=== PATIENT | female | born 1990 | race Caucasian/White ===

== ENCOUNTER 2016-09-07 22:32 | Emergency (ER) | payer BC ==
[2016-09-07] MEDS ORDERED: TETRACAINE 0.5% OPHTH SOLN 2 ML As Ordered ONE (23:00)
--- NOTE | 2016-09-08 04:30 | EDDOCDS ---
Physician Documentation [facility] Name: Yolanda Martínez Age: 25 yrs Sex: Female : 1990 Arrival Date: 09/07/2016 Time: 22:32 Bed 18 Private MD: NO PRIMARY PHYSICIAN, . Disposition: 09/08/16 04:01 Discharged to Home/Self Care. Impression: Amaurosis fugax - OS. - Condition is Stable. - Medication Reconciliation, Local Pharmacy Hours form. - Follow up: Jaret Flood; When: Follow Friday at Dr Flood's office.. - Problem is new. - Symptoms have improved. Historical: - Allergies: No known drug Allergies; - Home Meds: 1. none - PMHx: none; - PSHx: none; - Social history: Smoking status: Patient states was never smoker of tobacco. No barriers to communication noted, The patient speaks fluent Indonesian, Speaks appropriately for age. - Family history: Not pertinent. - : The pt / caregiver states he / she is not on anticoagulants. Home medication list is obtained from the patient. - Exposure Risk Screening:: None identified. 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 Vital Signs: 22:34 BP 133 / 71; Pulse 80; Resp 18; Temp 97.1(O); Pulse Ox 99% ; Weight 55.79 kg / 123 lbs; elp Height 5 ft. 6 in. (167.64 cm); Pain 4/10; 09/08 02:37 BP 132 / 69; Pulse 82; Resp 18; Temp 98.2; Pulse Ox 99% ; Pain 0/10; kas2 04:26 BP 125 / 69; Pulse 78; Resp 18; Temp 98.0(O); Pulse Ox 98% on R/A; Pain 0/10; kas2 09/07 22:34 Body Mass Index 19.85 (55.79 kg, 167.64 cm) elp Visual Acuity: 09/07 22:42 Left Eye Visual acuity 20/0, ; Right Eye Visual acuity 20/40, ; Without Lenses; PAtient jmalena reports only seeing carrillo outline with blurry vision in left eye MDM: 23:11 Financial registration complete. zo 23:25 [facility] Payment Agreement was scanned into MEDHOST and attached to record. zo 23:31 MRI Screening Tool - Place on chart, inform RN ordered. cs11 23:31 -MRI-Brain w/o foll by with Ordered. EDMS 23:39 MRI Screening Tool - Place on chart, inform RN complete. rs6 Signatures: Dispatcher MedHost EDMS Miguel A Mena Craig, DO DO cs11 Richard RahmanRN RN enzob Jessica Slagado, FELLED SEAM OPERATOR FELLED SEAM OPERATOR rs6 Shannon OwusuRN RN kas2 The chart was reviewed and I authenticate all verbal orders and agree with the evaluation and treatment provided.Attachments: 23:25 [facility] Payment Agreement zo MTDD
--- NOTE | 2016-09-08 04:30 | EDDOCDS ---
Nurse's Notes [facility] Name: Yolanda Martínez Age: 25 yrs Sex: Female : 1990 Arrival Date: 09/07/2016 Time: 22:32 Bed 18 Private MD: NO PRIMARY PHYSICIAN, . Diagnosis: Amaurosis fugax-OS Presentation: 09/07 22:35 Presenting complaint: Patient states: Patient reports one week ago had dull pain in eye jmb then went away. Tonight presents with blurring and dull pain. Mechanism of Injury: No Mechanism of Injury. Patient reports left eye has carrillo outline with blur. Adult Sepsis Screening: The patient does not have new or worsening altered mentation. Patient's respiratory rate is less than 22. Systolic blood pressure is greater than 100. Patient has a qSOFA score of 0- Negative Sepsis Screen. Suicide/Homicide risk assessment- the patient denies having any suicidal and/or homicidal ideations and does not present with any other emotional, behavioral or mental health complaints. Status: Patient is not a manager of creative services or dependent. Transition of care: patient was not received from another setting of care. 22:35 Acuity: TOMAS Level 3 [facility] 22:35 Method Of Arrival: Walkin/Carried/Asstd [facility] Triage Assessment: 22:37 General: Appears in no apparent distress, Behavior is appropriate for age, cooperative. [facility] Pain: Location: left eye Pain currently is 3 out of 10 on a pain scale. Pt Declines HIV testing. Neurological: Level of Consciousness is awake, alert, obeys commands, Oriented to person, place, time. EENT: No deficits noted. EENT: Reports blurred vision in outer aspect of conjuctiva of left eye, iris of left eye and inner aspect of conjunctiva of left eye. Respiratory: Airway is patent Respiratory effort is even, unlabored, Respiratory pattern is regular, symmetrical. Derm: Skin is pink, warm & dry. Musculoskeletal: Range of motion intact in all extremities. 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 none - PMHx: none; - PSHx: none; - Social history: Smoking status: Patient states was never smoker of tobacco. No barriers to communication noted, The patient speaks fluent Swiss, Speaks appropriately for age. - Family history: Not pertinent. - : The pt / caregiver states he / she is not on anticoagulants. Home medication list is obtained from the patient. - Exposure Risk Screening:: None identified. Screenin/01 00:30 Screening information is obtained from the patient. Fall risk: No risks identified. kas2 Assistance ADL's: requires no assistance with activities of daily living. Abuse/DV Screen: The patient / caregiver reports he/she is: not in a situation that causes fear, pain or injury. Nutritional screening: No deficits noted. Advance Directives: Currently, there is no health care proxy. There is no active DNR order. There is no living will. 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 home support is adequate. Assessment: 09/07 23:41 General: Appears in no apparent distress, Behavior is appropriate for age. ld5 Neurological: Level of Consciousness is awake, alert, obeys commands. EENT: Reports blurred vision to left eye. Respiratory: Airway is patent Respiratory effort is even, unlabored. 09/08 00:32 General: Patient sitting up in bed with family at beside. No apparent distress noted. kas2 Denies pain or discomfort at this time. Left eye remains oliveira and blurry. Will continue to monitor.. 01:43 General: Appears in no apparent distress, comfortable, well nourished, well groomed, kas2 Behavior is appropriate for age, cooperative. Neurological: Level of Consciousness is awake, alert, obeys commands, Oriented to person, place, time. Cardiovascular: Capillary refill < 3 seconds Heart tones present Rhythm is regular. Respiratory: Airway is patent Respiratory effort is even, unlabored, Respiratory pattern is regular, symmetrical, Breath sounds are clear bilaterally. Derm: Skin is intact, Skin is dry, Skin is pink, warm & dry. Skin temperature is warm. 02:35 General: Patient sitting in bed with family at bedside. No apparent distress. Denies kas2 pain or discomfort at this time. Call bailey within reach. Will conitinue to monitor.. 03:11 EENT: Sclera/Cornea. kas2 04:00 General: Patient laying in bed with family at bedside. Appears comfortable. No apparent kas2 distress noted. Denies pain or discomfort. Will continue to monitor.. 04:28 EENT: Eyes. kas2 Vital Signs: 09/07 22:34 BP 133 / 71; Pulse 80; Resp 18; Temp 97.1(O); Pulse Ox 99% ; Weight 55.79 kg; Height 5 elp ft. 6 in. (167.64 cm); Pain 4/10; 09/08 02:37 BP 132 / 69; Pulse 82; Resp 18; Temp 98.2; Pulse Ox 99% ; Pain 0/10; kas2 04:26 BP 125 / 69; Pulse 78; Resp 18; Temp 98.0(O); Pulse Ox 98% on R/A; Pain 0/10; kas2 09/07 22:34 Body Mass Index 19.85 (55.79 kg, 167.64 cm) elp Vitals: 09/07 22:34 Log In Time: September 07, 2016 at 22:31. elp Visual Acuity: 22:42 Left Eye Visual acuity 20/0, ; Right Eye Visual acuity 20/40, ; Without Lenses; PAtient [facility] reports only seeing carrillo outline with blurry vision in left eye ED Course: 22:33 Patient visited by Cande Marr PCA. elp 22:33 NO PRIMARY PHYSICIAN, . is Private Physician. elp 22:33 Patient moved to Waiting elp 22:35 Patient visited by Cande Marr PCA. elp 22:35 Patient moved to Pre RCE elp 22:37 Triage Initiated jmb 22:39 Patient moved to I10 / 23 jmb 22:52 Edgardo Loredo DO is Attending Physician. cs11 22:52 Patient visited by Edgardo Loredo DO. cs11 23:25 [facility] Payment Agreement was scanned into SpecifiedBy and attached to record. zo 23:41 Shannon Owusu RN is Primary Nurse. ld5 23:41 Patient moved to 18 ld5 23:42 Patient visited by Shannon Owusu RN. kas2 23:42 Patient visited by Jennifer Molina RN. ld5 09/08 00:31 Patient visited by Shannon Owusu RN. kas2 00:34 Patient visited by Shannon Owusu RN. kas2 01:07 Patient visited by Shannon Owusu RN. kas2 01:44 Patient visited by Shannon Owusu RN. kas2 02:35 Patient visited by Shannon Owusu RN. kas2 03:10 No procedures done that require assistance. kas2 03:11 Patient visited by Shannon Owusu RN. kas2 03:42 Patient visited by Shannon Owusu RN. kas2 04:00 Jaret Flood is Referral Physician. cs11 04:26 No IV's were initiated during this patient's visit. kas2 04:28 The patient / caregiver is instructed regarding the plan of care and ED course. kas2 04:29 Patient visited by Shannon Owusu RN. kas2 Order Results: There are currently no results for this order. Outcome: 04:01 Discharge ordered by Provider. cs11 04:28 Discharge Assessment: patient administered narcotics - no. The following High Risk kas2 Discharge criteria are identified: None. Discharged to home with friend. Condition: good Condition: stable Condition: improved. MRI Study completed. Property :Personal belongings accompany Pt. 04:29 Patient left the ED. [facility] Signatures: Miguel A Mena Laura,RN RN ld5 Edgardo Loredo DO DO cs11 Cande Marr, Richard Lopez RN RN jmb Smith, Kim, RN RN [facility] MTDD
--- NOTE | 2016-09-10 05:30 | EDDOCDS ---
Nurse's Notes [facility] Name: Yolanda Martínez Age: 25 yrs Sex: Female : 1990 Arrival Date: 09/07/2016 Time: 22:32 Bed 18 Private MD: NO PRIMARY PHYSICIAN, . Diagnosis: Amaurosis fugax-OS Presentation: 09/07 22:35 Presenting complaint: Patient states: Patient reports one week ago had dull pain in eye jmb then went away. Tonight presents with blurring and dull pain. Mechanism of Injury: No Mechanism of Injury. Patient reports left eye has carrlilo outline with blur. Adult Sepsis Screening: The patient does not have new or worsening altered mentation. Patient's respiratory rate is less than 22. Systolic blood pressure is greater than 100. Patient has a qSOFA score of 0- Negative Sepsis Screen. Suicide/Homicide risk assessment- the patient denies having any suicidal and/or homicidal ideations and does not present with any other emotional, behavioral or mental health complaints. 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 Transition of care: patient was not received from another setting of care. 22:35 Acuity: TOMAS Level 3 [facility] 22:35 Method Of Arrival: Walkin/Carried/Asstd [facility] Triage Assessment: 22:37 General: Appears in no apparent distress, Behavior is appropriate for age, cooperative. [facility] Pain: Location: left eye Pain currently is 3 out of 10 on a pain scale. Pt Declines HIV testing. Neurological: Level of Consciousness is awake, alert, obeys commands, Oriented to person, place, time. EENT: No deficits noted. EENT: Reports blurred vision in outer aspect of conjuctiva of left eye, iris of left eye and inner aspect of conjunctiva of left eye. Respiratory: Airway is patent Respiratory effort is even, unlabored, Respiratory pattern is regular, symmetrical. Derm: Skin is pink, warm & dry. Musculoskeletal: Range of motion intact in all extremities. 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 none - PMHx: none; - PSHx: none; - Social history: Smoking status: Patient states was never smoker of tobacco. No barriers to communication noted, The patient speaks fluent Chilean, Speaks appropriately for age. - Family history: Not pertinent. - : The pt / caregiver states he / she is not on anticoagulants. Home medication list is obtained from the patient. - Exposure Risk Screening:: None identified. Screenin/01 00:30 Screening information is obtained from the patient. Fall risk: No risks identified. kas2 Assistance ADL's: requires no assistance with activities of daily living. Abuse/DV Screen: The patient / caregiver reports he/she is: not in a situation that causes fear, pain or injury. Nutritional screening: No deficits noted. Advance Directives: Currently, there is no health care proxy. There is no active DNR order. There is no living will. There is no Power of Rn Mds. home support is adequate. Assessment: 09/07 23:41 General: Appears in no apparent distress, Behavior is appropriate for age. ld5 Neurological: Level of Consciousness is awake, alert, obeys commands. EENT: Reports blurred vision to left eye. Respiratory: Airway is patent Respiratory effort is even, unlabored. 09/08 00:32 General: Patient sitting up in bed with family at beside. No apparent distress noted. kas2 Denies pain or discomfort at this time. Left eye remains oliveira and blurry. Will continue to monitor.. 01:43 General: Appears in no apparent distress, comfortable, well nourished, well groomed, kas2 Behavior is appropriate for age, cooperative. Neurological: Level of Consciousness is awake, alert, obeys commands, Oriented to person, place, time. Cardiovascular: Capillary refill < 3 seconds Heart tones present Rhythm is regular. Respiratory: Airway is patent Respiratory effort is even, unlabored, Respiratory pattern is regular, symmetrical, Breath sounds are clear bilaterally. Derm: Skin is intact, Skin is dry, Skin is pink, warm & dry. Skin temperature is warm. 02:35 General: Patient sitting in bed with family at bedside. No apparent distress. Denies kas2 pain or discomfort at this time. Call bailey within reach. Will conitinue to monitor.. 03:11 EENT: Sclera/Cornea. kas2 04:00 General: Patient laying in bed with family at bedside. Appears comfortable. No apparent kas2 distress noted. Denies pain or discomfort. Will continue to monitor.. 04:28 EENT: Eyes. kas2 Vital Signs: 09/07 22:34 BP 133 / 71; Pulse 80; Resp 18; Temp 97.1(O); Pulse Ox 99% ; Weight 55.79 kg; Height 5 elp ft. 6 in. (167.64 cm); Pain 4/10; 09/08 02:37 BP 132 / 69; Pulse 82; Resp 18; Temp 98.2; Pulse Ox 99% ; Pain 0/10; kas2 04:26 BP 125 / 69; Pulse 78; Resp 18; Temp 98.0(O); Pulse Ox 98% on R/A; Pain 0/10; kas2 09/07 22:34 Body Mass Index 19.85 (55.79 kg, 167.64 cm) elp Vitals: 09/07 22:34 Log In Time: September 07, 2016 at 22:31. elp Visual Acuity: 22:42 Left Eye Visual acuity 20/0, ; Right Eye Visual acuity 20/40, ; Without Lenses; PAtient [facility] reports only seeing carrillo outline with blurry vision in left eye ED Course: 22:33 Patient visited by Cande Marr PCA. elp 22:33 NO PRIMARY PHYSICIAN, . is Private Physician. elp 22:33 Patient moved to Waiting elp 22:35 Patient visited by Cande Marr PCA. elp 22:35 Patient moved to Pre RCE elp 22:37 Triage Initiated jmb 22:39 Patient moved to I10 / 23 jmb 22:52 Edgardo Loredo DO is Attending Physician. cs11 22:52 Patient visited by Edgardo Loredo DO. cs11 23:25 [facility] Payment Agreement was scanned into [employer]Met[employer] and attached to record. zo 23:41 Shannon Owusu RN is Primary Nurse. ld5 23:41 Patient moved to 18 ld5 23:42 Patient visited by Shannon Owusu RN. kas2 23:42 Patient visited by Jennifer Molina RN. ld5 09/08 00:31 Patient visited by Shannon Owusu RN. kas2 00:34 Patient visited by Shannon Owusu RN. kas2 01:07 Patient visited by Shannon Owusu RN. kas2 01:44 Patient visited by Shannon Owusu RN. kas2 02:35 Patient visited by Shannon Owusu RN. kas2 03:10 No procedures done that require assistance. kas2 03:11 Patient visited by Shannon Owusu RN. [facility] 03:42 Patient visited by Shannon Owusu RN. [facility] 04:00 Jaret lFood is Referral Physician. cs11 04:26 No IV's were initiated during this patient's visit. [facility] 04:28 The patient / caregiver is instructed regarding the plan of care and ED course. [facility] 04:29 Patient visited by Shannon Owusu RN. [facility] 09:29 T-Sheet-- Draft Copy was scanned into CaseMetrix and attached to record. [facility] 09/09 09:53 Radiology Report was scanned into CaseMet[employer] and attached to record. Order Results: There are currently no results for this order. Outcome: 09/08 04:01 Discharge ordered by Provider. 11 04:28 Discharge Assessment: patient administered narcotics - no. The following High Risk [facility] Discharge criteria are identified: None. Discharged to home with friend. Condition: good Condition: stable Condition: improved. MRI Study completed. Property :Personal belongings accompany Pt. 04:29 Patient left the ED. [facility] Signatures: Alanis Dick, Reg Reg Miguel A Mata Laura,RN RN ld5 Edgardo Loredo, DO cs11 Cande Marr, MODELING INSTRUCTOR MODELING INSTRUCTOR Richard Perez RN RN Shannon Devine,ALEKSANDER RN [facility] Perla Colon [facility] Chart Complete MTDD
--- NOTE | 2016-09-10 05:30 | EDDOCDS ---
Physician Documentation [facility] Name: Yolanda Martínez Age: 25 yrs Sex: Female : 1990 Arrival Date: 09/07/2016 Time: 22:32 Bed 18 Private MD: NO PRIMARY PHYSICIAN, . Disposition: 09/08/16 04:01 Discharged to Home/Self Care. Impression: Amaurosis fugax - OS. - Condition is Stable. - Medication Reconciliation, Local Pharmacy Hours form. - Follow up: Jaret Flood; When: Follow Friday at Dr Flood's office.. - Problem is new. - Symptoms have improved. Historical: - Allergies: No known drug Allergies; - Home Meds: 1. none - PMHx: none; - PSHx: none; - Social history: Smoking status: Patient states was never smoker of tobacco. No barriers to communication noted, The patient speaks fluent Canadian, Speaks appropriately for age. - Family history: Not pertinent. - : The pt / caregiver states he / she is not on anticoagulants. Home medication list is obtained from the patient. - Exposure Risk Screening:: None identified. 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 6 in. (167.64 cm); Pain 4/10; 09/08 02:37 BP 132 / 69; Pulse 82; Resp 18; Temp 98.2; Pulse Ox 99% ; Pain 0/10; kas2 04:26 BP 125 / 69; Pulse 78; Resp 18; Temp 98.0(O); Pulse Ox 98% on R/A; Pain 0/10; kas2 09/07 22:34 Body Mass Index 19.85 (55.79 kg, 167.64 cm) elp Visual Acuity: 09/07 22:42 Left Eye Visual acuity 20/0, ; Right Eye Visual acuity 20/40, ; Without Lenses; PAtient jmalena reports only seeing carrillo outline with blurry vision in left eye MDM: 23:11 Financial registration complete. zo 23:25 [facility] Payment Agreement was scanned into MEDHOST and attached to record. zo 23:31 MRI Screening Tool - Place on chart, inform RN ordered. cs11 23:31 -MRI-Brain w/o foll by with Ordered. EDMS 23:39 MRI Screening Tool - Place on chart, inform RN complete. rs6 09/08 09:29 T-Sheet-- Draft Copy was scanned into MyStar[employer] and attached to record. se 09/09 09:53 Radiology Report was scanned into MEDHOST and attached to record. gb Signatures: Dispatcher MedHost EDMS Alanis Dick, Reg Reg gb Rajesh, Ashleyeann zo Edgardo Loredo, DO cs11 Richard Rahman,RN RN Jessica Kelly, STEEL SPAR OPERATOR STEEL SPAR OPERATOR rsShannon FarleyRN RN Perla Sam se The chart was reviewed and I authenticate all verbal orders and agree with the evaluation and treatment provided.Attachments: 09/07 23:25 [facility] Payment Agreement zo 09/08 09:29 T-Sheet-- Draft Copy [facility] Chart Complete MTDD
--- NOTE | 2016-09-10 05:30 | EDDOCDS ---
Physician Documentation [facility] Name: Yolanda Martínez Age: 25 yrs Sex: Female : 1990 Arrival Date: 09/07/2016 Time: 22:32 Bed 18 Private MD: NO PRIMARY PHYSICIAN, . Disposition: 09/08/16 04:01 Discharged to Home/Self Care. Impression: Amaurosis fugax - OS. - Condition is Stable. - Medication Reconciliation, Local Pharmacy Hours form. - Follow up: Jaret Flood; When: Follow Friday at Dr Flood's office.. - Problem is new. - Symptoms have improved. Historical: - Allergies: No known drug Allergies; - Home Meds: 1. none - PMHx: none; - PSHx: none; - Social history: Smoking status: Patient states was never smoker of tobacco. No barriers to communication noted, The patient speaks fluent Cymraes, Speaks appropriately for age. - Family history: Not pertinent. - : The pt / caregiver states he / she is not on anticoagulants. Home medication list is obtained from the patient. - Exposure Risk Screening:: None identified. 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 6 in. (167.64 cm); Pain 4/10; 09/08 02:37 BP 132 / 69; Pulse 82; Resp 18; Temp 98.2; Pulse Ox 99% ; Pain 0/10; kas2 04:26 BP 125 / 69; Pulse 78; Resp 18; Temp 98.0(O); Pulse Ox 98% on R/A; Pain 0/10; kas2 09/07 22:34 Body Mass Index 19.85 (55.79 kg, 167.64 cm) elp Visual Acuity: 09/07 22:42 Left Eye Visual acuity 20/0, ; Right Eye Visual acuity 20/40, ; Without Lenses; PAtient jmalena reports only seeing carrillo outline with blurry vision in left eye MDM: 23:11 Financial registration complete. zo 23:25 [facility] Payment Agreement was scanned into MEDHOST and attached to record. zo 23:31 MRI Screening Tool - Place on chart, inform RN ordered. cs11 23:31 -MRI-Brain w/o foll by with Ordered. EDMS 23:39 MRI Screening Tool - Place on chart, inform RN complete. rs6 09/08 09:29 T-Sheet-- Draft Copy was scanned into [employer] and attached to record. se 09/09 09:53 Radiology Report was scanned into MEDHOST and attached to record. gb Signatures: Dispatcher MedHost EDMS Alanis Dick, Reg Reg gb Rajesh, Ashleyeann zo Edgardo Loredo, DO cs11 Richard Rahman,RN RN Jessica Kelly, AUTO DRIVER AUTO DRIVER rsShannon FarleyRN RN Perla Sam se The chart was reviewed and I authenticate all verbal orders and agree with the evaluation and treatment provided.Attachments: 09/07 23:25 [facility] Payment Agreement zo 09/08 09:29 T-Sheet-- Draft Copy [facility] Chart Complete MTDD
--- NOTE | 2016-09-11 11:34 | CR ---
DATE OF CONSULTATION: 09/08/2016 CHIEF COMPLAINT: Left eye pain, blurred vision. HISTORY OF PRESENT ILLNESS: This is a 25-year-old white female who presented to the emergency room with her father, she reports one week of bilateral vision loss and eye pain. Over the past few days, the right eye pain resolved gradually and the vision improved and is now stated to be "normal". The patient woke up 09/07/2016 with worsening vision in the left eye and some mild eye pain with movement. She was seen and examined in the emergency room. An MRI was performed and was negative. PAST MEDICAL HISTORY: Denies. PAST SURGICAL HISTORY: Denies. PAST FAMILY HISTORY: Possibly glaucoma and has a grandmother with macular degeneration. REVIEW OF SYSTEMS: Left eye pain and blurred vision. All other negative, no upper or lower extremity weakness, no headache, no dysuria or incontinence. PAST OCULAR HISTORY: No prior ocular surgery or use of eye drops. ALLERGIES: No known drug allergies. MEDICATIONS: See chart. - denies oral contraception EXAM: When corrected visual acuity 20/40 right eye, left eye blurred vision at approximately 3 feet. Limited visual acuity examination in emergency room as no formal testing was available. Intraocular pressure (IOP) by palpation was normal both eyes. Pupils in the right eye were 6 mm and reactive to 3 mm with no afferent pupillary defect (APD). Left eye 6 mm to 3 mm reactive with no APD. Color plate testing was performed, it was full 16 out of 16 in the right eye. In the left eye, 0 out of 16, patient also missed test plate. Extraocular muscles were full OU. Slit lamp exam lids, lashes and adnexa - No ptosis, lid lag or retraction in both eyes. No evidence of ecchymosis. Conjunctiva and sclera was white and quiet both eyes. Cornea was clear both eyes. The anterior chamber was deep and quiet both eyes. Lens was clear both eyes. A 90 diopter undilated fundus exam was performed. Cup to disc ratio in the right eye was 0.45, Cup to disc ratio in the left eye was 0.4, sharp, pink and flat both eyes with no edema, or optic nerve hemorrhage. Macula is flat both eyes. Periphery: (limited as pupils were not dilated) No holes, no tears, no retinal detachment OU. Vessels were normal in caliber and normal color both eyes with no AV nicking or hypertensive changes. ASSESSMENT AND PLAN: 1. Blurred vision. 2. Eye pain. Followup in the office in 2 days, Friday morning for formal visual field 30-2 OCT retina and dilated exam with manifest refraction. To rule out evidence of optic nerve pathology or nonorganic vision loss. Patient was given phone number and office address to followup Friday or should return to the ER if patient notices any changes or worsening of the vision. All questions and findings were explained to the patient and father. JACKLNY
--- NOTE | 2016-09-11 11:46 | REPUSA ---
TECHNIQUE: MRI of the brain was performed prior to and following administration of intravenous contra st material. T1 spine echo, T2 fast spin echo and FLAIR sequences were obtained in sagittal, axial an d coronal planes. FINDINGS: The sella and parasellar regions are unremarkable in appearance. The corpus callosum and cerebellar t onsils are of normal configuration and position. There are no intra or extra-axial collections. There is no mass effect or midline shift. There is no evidence of hematoma formation. There is no hydrocep halus. The brain stem shows no mass effects, infarcts or hemorrhage. There are no cerebellopontine tumors. T he acoustic nerves are symmetrical. No cerebellar intra-axial pathology delineated. The fourth ventri dionne and aqueduct are normal. No abnormalities of the optic nerves are identified. There is no evidenc e of atrophic or degenerative changes. No dural or subdural masses or collections are detected. The visualized arterial structures demonstrate normal appearing flow voids. The VII and VIII nerve bu ndles are visualized and are unremarkable in appearance. There are no suspicious signal abnormalities within the infra or supratentorial space. Post gadolinium sequences demonstrate no evidence of abnormal enhancement. Mild chronic ethmoid and maxillary sinusitis. IMPRESSION: Sinusitis. Otherwise normal MRI of the brain. Thank you for your kind referral of this patient.
== END 2016-09-08 04:29 | disposition home or self-care (01) ==
LOC: M ED 22:32
DX: G45.3 Amaurosis fugax (principal)
CPT/HCPCS: 70553; 99283; A9576

== ENCOUNTER 2016-09-16 14:49 | Outpatient (CLI) | payer BC ==
[~2016-09-16] VITALS: Ht 167.6 cm; Wt 56.2 kg
[~2016-09-16 14:49] MED LIST: methylPREDNISolone 1,000 MG, VIAL MATE ADAPTER 1 EACH in D5W 250 ML IV ONE
[2016-09-16 16:12] LABS: BASO % 0.5 % (0.0-1.0); EOS # 0.1 K/mm3 (0.0-0.50); LARGE UNSTAINED CELL # 0.1 K/mm3 (0.0-0.4); LARGE UNSTAINED CELL % 1.7 % (0.0-4.0); LYMPH # 1.5 K/mm3 (1.5-6.5); MEAN CORPUSCULAR HEMOGLOBIN 29.3 pg (27.0-33.0); MEAN CORPUSCULAR HGB CONC 34.2 g/dl (32.0-36.5); MEAN CORPUSCULAR VOLUME 85.7 fl (80.0-96.0); MONO # 0.4 K/mm3 (0.0-0.8); MONO % 5.9 % (0.0-5.0); NEUTROPHILS # 4.6 K/mm3 (1.8-7.7); PLATELET COUNT, AUTOMATED 217 k/mm3 (150-450); RED CELL DISTRIBUTION WIDTH 12.8 % (11.5-14.5); WHITE BLOOD COUNT 6.6 K/mm3 (4.0-10.0)
[2016-09-16 16:38] LABS: ALBUMIN 3.7 GM/DL (3.2-5.2); ALBUMIN/GLOBULIN RATIO 1.16 (1.00-1.93); ALKALINE PHOSPHATASE 49 U/L (45-117); ALT/SGPT 17 U/L (12-78); ANION GAP 8 MEQ/L (8-16); AST/SGOT 9 U/L (15-37); BILIRUBIN,TOTAL 0.5 MG/DL (0.2-1.0); BLOOD UREA NITROGEN 11 MG/DL (7-18); CALCIUM LEVEL 8.3 MG/DL (8.5-10.1); CARBON DIOXIDE LEVEL 26 MEQ/L (21-32); CHLORIDE LEVEL 106 MEQ/L (98-107); CREATININE FOR GFR 0.74 MG/DL (0.55-1.02); GLOMERULAR FILTRATION RATE > 60.0 (>60); GLUCOSE, FASTING 90 MG/DL (70-105); POTASSIUM SERUM 3.9 MEQ/L (3.5-5.1); SODIUM LEVEL 140 MEQ/L (136-145); TOTAL PROTEIN 6.9 GM/DL (6.4-8.2)
[2016-09-16 18:29] LABS: ERYTHROCYTE SEDIMENTATION RATE 9 mm/hr (0-20)
== END 2016-09-16 16:55 | disposition home or self-care (01) ==
LOC: M INFU 14:49
PROVIDERS: ATTEND Psychiatry & Neurology Neurology
DX: H46.9 Unspecified optic neuritis (principal)
CPT/HCPCS: 36415; 80053; 82164; 83520; 84443; 85025; 85652; 86038; 86225; 86235; 86255; 86256; 86431; 86617; 96365; J2930

== ENCOUNTER 2016-09-17 12:59 | Outpatient (CLI) | payer BC ==
[~2016-09-17] VITALS: Ht 167.6 cm; Wt 56.4 kg
== END 2016-09-17 14:30 | disposition home or self-care (01) ==
LOC: M INFU 12:59
PROVIDERS: ATTEND Psychiatry & Neurology Neurology
DX: H46.9 Unspecified optic neuritis (principal)
CPT/HCPCS: 96365; J2930

== ENCOUNTER 2016-09-18 08:57 | Outpatient (CLI) | payer BC ==
[~2016-09-18] VITALS: Ht 167.6 cm; Wt 56.4 kg
[2016-09-18] MEDS ORDERED: methylPREDNISolone 1,000 MG, VIAL MATE ADAPTER 1 EACH in D5W 250 ML IV ONE (09:15)
== END 2016-09-18 10:30 | disposition home or self-care (01) ==
LOC: M INFU 08:57
PROVIDERS: ATTEND Psychiatry & Neurology Neurology
DX: H46.9 Unspecified optic neuritis (principal)
CPT/HCPCS: 96365; J2930

== ENCOUNTER 2016-09-19 09:28 | Outpatient (CLI) | payer BC ==
[~2016-09-19] VITALS: Ht 167.6 cm; Wt 56.4 kg
[2016-09-19] MEDS ORDERED: methylPREDNISolone 1,000 MG, VIAL MATE ADAPTER 1 EACH in D5W 250 ML IV ONE (09:45)
== END 2016-09-19 10:45 | disposition home or self-care (01) ==
LOC: M INFU 09:28
PROVIDERS: ATTEND Psychiatry & Neurology Neurology
DX: H46.9 Unspecified optic neuritis (principal)
CPT/HCPCS: 96365; 96366; J2930

== ENCOUNTER 2016-09-20 13:34 | Outpatient (CLI) | payer BC ==
[~2016-09-20] VITALS: Ht 167.6 cm; Wt 56.4 kg
[2016-09-20] MEDS ORDERED: methylPREDNISolone 1,000 MG, VIAL MATE ADAPTER 1 EACH in D5W 250 ML IV ONE (14:00)
== END 2016-09-20 15:00 | disposition home or self-care (01) ==
LOC: M INFU 13:34
PROVIDERS: ATTEND Psychiatry & Neurology Neurology
DX: H46.9 Unspecified optic neuritis (principal)
CPT/HCPCS: 96365; J2930

== ENCOUNTER → 2016-12-26 | Outpatient (CLI) | payer BC | LOC: M LAB 10:47 | PROVIDERS: ATTEND Psychiatry & Neurology Neurology | DX: G36.0 Neuromyelitis optica [Devic] (principal) ==

== ENCOUNTER 2017-09-15 11:51 | Emergency (ER) | payer BC ==
[2017-09-15 13:05] LABS: APPEARANCE, URINE CLEAR (CLEAR); BACTERIA, URINE AUTO 1+ (NEGATIVE); BILIRUBIN, URINE AUTO NEGATIVE (NEGATIVE); BLOOD, URINE BLOOD NEGATIVE (NEGATIVE); COLOR, URINE YELLOW (YELLOW); GLUCOSE, URINE (UA) AUTO NEGATIVE (NEGATIVE); KETONE, URINE AUTO NEGATIVE (NEGATIVE); LEUKOCYTE ESTERASE, URINE AUTO 2+ (NEGATIVE); NITRITE, URINE AUTO NEGATIVE (NEGATIVE); PROTEIN, URINE AUTO NEGATIVE (NEGATIVE); RBC, URINE AUTO 1 /HPF (0-3); SPECIFIC GRAVITY URINE AUTO 1.006 (1.002-1.035); SQUAMOUS EPITHELIAL CELL UR AU 1 /HPF (0-6); UROBILINOGEN, URINE AUTO 0.2 mg/dL (0.0-2.0); WBC, URINE AUTO 2 /HPF (0-3)
== END 2017-09-15 13:33 | disposition home or self-care (01) ==
LOC: M ED 11:51
DX: N39.0 Urinary tract infection, site not specified (principal)
CPT/HCPCS: 71101

== ENCOUNTER 2017-09-25 15:29 | Outpatient (CLI) | payer BC ==
[~2017-09-25 15:29] MED LIST changes: +BUPIVACAINE HCL 0.25% 30 ML VIAL As Ordered; +GLYCOPYRROLATE INJ 0.2 MG/ML 2 ML VIAL As Ordered; +LIDOCAINE 2% INJ 100 MG/5 ML SDV (FOR ANES.) As Ordered; +MIDAZOLAM INJ 2 MG/2 ML VIAL (J2250) As Ordered; +NEOSTIGMINE 10 MG/10 ML VIAL (J2710) As Ordered; +ONDANSETRON 4MG/2ML VIAL (J2405) As Ordered; +PROPOFOL 200 MG/20 ML VIAL As Ordered; +ROCURONIUM BROMIDE 50 MG/5 ML VIAL As Ordered; +fentaNYL 100 MCG/2 ML INJECTION (J3010) As Ordered; -methylPREDNISolone 1,000 MG, VIAL MATE ADAPTER 1 EACH in D5W 250 ML IV ONE
[2017-09-25] MEDS: methylPREDNISolone 1,000 MG, VIAL MATE ADAPTER 1 EACH in D5W 250 ML IV (15:46)
== END 2017-09-25 17:00 | disposition home or self-care (01) ==
LOC: M INFU 15:29
DX: G36.0 Neuromyelitis optica [Devic] (principal); Z79.899 Other long term (current) drug therapy
CPT/HCPCS: 96365

== ENCOUNTER 2017-09-26 09:01 | Outpatient (CLI) | payer BC ==
[2017-09-26] MEDS: methylPREDNISolone 1,000 MG, VIAL MATE ADAPTER 1 EACH in D5W 250 ML IV (09:23)
== END 2017-09-26 10:35 | disposition home or self-care (01) ==
LOC: M INFU 09:01
DX: G36.0 Neuromyelitis optica [Devic] (principal); Z79.899 Other long term (current) drug therapy
CPT/HCPCS: 96365

== ENCOUNTER 2017-09-27 10:32 | Outpatient (CLI) | payer BC ==
[2017-09-27] MEDS: methylPREDNISolone 1,000 MG, VIAL MATE ADAPTER 1 EACH in D5W 250 ML IV (11:30)
== END 2017-09-27 12:35 | disposition home or self-care (01) ==
LOC: M INFU 10:32 → M PED 10:38 → M INFU 12:35
DX: G36.0 Neuromyelitis optica [Devic] (principal); Z79.899 Other long term (current) drug therapy
CPT/HCPCS: 96365

== ENCOUNTER 2017-11-09 13:31 | Emergency (ER) | payer OTHER, BC ==
[2017-11-09] MEDS: TETRACAINE 0.5% OPHTH SOLN 4ML OU (14:00)
== END 2017-11-09 15:17 | disposition home or self-care (01) ==
LOC: M ED 13:31
DX: T54.91XA Toxic effect of unspecified corrosive substance, accidental (unintentional), initial encounter (principal); Y92.9 Unspecified place or not applicable; Y93.89 Activity, other specified; Y99.0 Civilian activity done for income or pay; Z79.899 Other long term (current) drug therapy
CPT/HCPCS: 99283

== ENCOUNTER → 2017-11-21 | Outpatient (CLI) | payer BC ==
[2017-11-21 14:57] LABS: BASO # 0.1 10^3/uL (0.0-0.2); BASO % 0.5 % (0.0-1.0); EOS # 0.1 10^3/uL (0.0-0.50); EOS % 0.6 % (0.0-3.0); HEMATOCRIT 38.9 % (36.0-47.0); HEMOGLOBIN 12.9 g/dl (12.0-16.0); IMMATURE GRANULOCYTE % 0.5 % (0-3.0); LYMPH % 9.2 % (24.0-44.0); MEAN CORPUSCULAR HEMOGLOBIN 29.1 pg (27.0-33.0); MEAN CORPUSCULAR HGB CONC 33.2 g/dl (32.0-36.5); MEAN CORPUSCULAR VOLUME 87.6 fl (80.0-96.0); MONO # 0.4 10^3/uL (0.0-0.8); MONO % 3.9 % (0.0-5.0); NEUTROPHILS # 9.3 10^3/uL (1.8-7.7); NEUTROPHILS % 85.3 % (36.0-66.0); PLATELET COUNT, AUTOMATED 280 10^3/uL (150-450); RED BLOOD COUNT 4.44 10^6/uL (4.00-5.40); RED CELL DISTRIBUTION WIDTH 13.1 % (11.5-14.5); WHITE BLOOD COUNT 10.9 10^3/uL (4.0-10.0)
[2017-11-21 15:24] LABS: ALBUMIN 4.1 GM/DL (3.2-5.2); ALBUMIN/GLOBULIN RATIO 1.32 (1.00-1.93); ALKALINE PHOSPHATASE 57 U/L (45-117); ALT/SGPT 24 U/L (12-78); ANION GAP 7 MEQ/L (8-16); AST/SGOT 10 U/L (7-37); BILIRUBIN,TOTAL 0.4 MG/DL (0.2-1.0); BLOOD UREA NITROGEN 13 MG/DL (7-18); CALCIUM LEVEL 8.9 MG/DL (8.5-10.1); CARBON DIOXIDE LEVEL 28 MEQ/L (21-32); CHLORIDE LEVEL 107 MEQ/L (98-107); CREATININE FOR GFR 0.74 MG/DL (0.55-1.30); GLOMERULAR FILTRATION RATE > 60.0 (>60); GLUCOSE, FASTING 113 MG/DL (70-100); POTASSIUM SERUM 4.2 MEQ/L (3.5-5.1); SODIUM LEVEL 142 MEQ/L (136-145); THYROID STIMULATING HORMONE 0.315 uIU/ML (0.358-3.740); TOTAL PROTEIN 7.2 GM/DL (6.4-8.2)
[2017-11-21 15:33] LABS: HEPATITIS B SURFACE ANTIGEN NEGATIVE (NEGATIVE)
[2017-11-27 00:06] LABS: HEPATITIS A IgG TOTAL Positive (Negative)
== END ==
LOC: M LAB 14:26
DX: Z79.899 Other long term (current) drug therapy (principal)
CPT/HCPCS: 84443

== ENCOUNTER → 2018-01-09 | Outpatient (CLI) | payer BC ==
[2018-01-09 15:40] LABS: CPK CREATINE PHOSPHOKINASE 42 U/L (26-192)
[2018-01-09 15:40] LABS: FREE T4 0.83 NG/DL (0.76-1.46); THYROID STIMULATING HORMONE 0.223 uIU/ML (0.358-3.740)
== END ==
LOC: M LAB 14:43
DX: M79.1 Myalgia (principal)
CPT/HCPCS: 82550

== ENCOUNTER → 2018-02-09 | Outpatient (REF) | payer BC | LOC: M SFHCADAM 02-10 09:55 | DX: Z01.419 Encounter for gynecological examination (general) (routine) without abnormal findings (principal) | CPT/HCPCS: G0123 ==

== ENCOUNTER → 2018-05-14 | Outpatient (REF) | payer BC | LOC: M SFHCLERA 10:38 | DX: D22.62 Melanocytic nevi of left upper limb, including shoulder (principal) | CPT/HCPCS: 88305 ==

== ENCOUNTER → 2018-05-15 | Outpatient (REF) | payer BC ==
[2018-05-15 20:05] LABS: APPEARANCE, URINE HAZY (CLEAR); BACTERIA, URINE AUTO 1+ (NEGATIVE); BILIRUBIN, URINE AUTO NEGATIVE (NEGATIVE); BLOOD, URINE BLOOD NEGATIVE (NEGATIVE); COLOR, URINE YELLOW (YELLOW); GLUCOSE, URINE (UA) AUTO NEGATIVE (NEGATIVE); KETONE, URINE AUTO NEGATIVE (NEGATIVE); LEUKOCYTE ESTERASE, URINE AUTO 1+ (NEGATIVE); NITRITE, URINE AUTO NEGATIVE (NEGATIVE); PROTEIN, URINE AUTO NEGATIVE (NEGATIVE); RBC, URINE AUTO 0 /HPF (0-3); SPECIFIC GRAVITY URINE AUTO 1.008 (1.002-1.035); SQUAMOUS EPITHELIAL CELL UR AU 0 /HPF (0-6); UROBILINOGEN, URINE AUTO 0.2 mg/dL (0.0-2.0); WBC, URINE AUTO 14 /HPF (0-3)
== END ==
LOC: M LAB REF 19:18
DX: N39.0 Urinary tract infection, site not specified (principal)
CPT/HCPCS: 81001

== ENCOUNTER 2018-06-22 15:29 | Outpatient (CLI) | payer BC ==
[2018-06-22] MEDS: methylPREDNISolone 1,000 MG, VIAL MATE ADAPTER 1 EACH in D5W 250 ML IV (16:26)
== END 2018-06-22 17:40 | disposition home or self-care (01) ==
LOC: M INFU 15:29
DX: G36.0 Neuromyelitis optica [Devic] (principal)
CPT/HCPCS: J2930

== ENCOUNTER → 2018-06-22 | Outpatient (CLI) | payer BC ==
[2018-06-22 18:32] LABS: TOTAL 25(OH) VITAMIN D 18.9 NG/ML (30.0-100.0)
== END ==
LOC: M LAB 15:27
DX: G36.0 Neuromyelitis optica [Devic] (principal)
CPT/HCPCS: 82306

== ENCOUNTER 2018-06-23 15:26 | Outpatient (CLI) | payer BC ==
[2018-06-23] MEDS: methylPREDNISolone 1,000 MG, VIAL MATE ADAPTER 1 EACH in D5W 250 ML IV (15:34)
== END 2018-06-23 16:50 | disposition home or self-care (01) ==
LOC: M INFU 15:26
DX: G36.0 Neuromyelitis optica [Devic] (principal)
CPT/HCPCS: J2930

== ENCOUNTER 2018-06-24 14:26 | Outpatient (CLI) | payer BC ==
[2018-06-24] MEDS: methylPREDNISolone 1,000 MG, VIAL MATE ADAPTER 1 EACH in D5W 250 ML IV (14:43)
== END 2018-06-24 15:50 | disposition home or self-care (01) ==
LOC: M INFU 14:26
DX: G35 Multiple sclerosis (principal); Z79.899 Other long term (current) drug therapy
CPT/HCPCS: J2930

== ENCOUNTER → 2018-08-04 | Outpatient (CLI) | payer BC ==
[2018-08-04 14:46] LABS: BASO # 0.1 10^3/uL (0.0-0.2); BASO % 0.7 % (0.0-1.0); EOS # 0.1 10^3/uL (0.0-0.50); EOS % 1.5 % (0.0-3.0); HEMATOCRIT 38.9 % (36.0-47.0); IMMATURE GRANULOCYTE % 0.3 % (0-3.0); LYMPH # 1.6 10^3/uL (1.5-6.5); LYMPH % 21.8 % (24.0-44.0); MEAN CORPUSCULAR HEMOGLOBIN 29.1 pg (27.0-33.0); MEAN CORPUSCULAR HGB CONC 33.4 g/dl (32.0-36.5); MEAN CORPUSCULAR VOLUME 87.2 fl (80.0-96.0); MONO # 0.7 10^3/uL (0.0-0.8); MONO % 9.6 % (0.0-5.0); NEUTROPHILS # 4.9 10^3/uL (1.8-7.7); NEUTROPHILS % 66.1 % (36.0-66.0); PLATELET COUNT, AUTOMATED 255 10^3/uL (150-450); RED BLOOD COUNT 4.46 10^6/uL (4.00-5.40); RED CELL DISTRIBUTION WIDTH 13.1 % (11.5-14.5); WHITE BLOOD COUNT 7.5 10^3/uL (4.0-10.0)
[2018-08-04 15:24] LABS: ALBUMIN 3.8 GM/DL (3.2-5.2); ALBUMIN/GLOBULIN RATIO 1.15 (1.00-1.93); ALKALINE PHOSPHATASE 57 U/L (45-117); ALT/SGPT 24 U/L (12-78); ANION GAP 6 MEQ/L (8-16); AST/SGOT 12 U/L (7-37); BILIRUBIN,TOTAL 0.4 MG/DL (0.2-1.0); BLOOD UREA NITROGEN 13 MG/DL (7-18); CALCIUM LEVEL 8.5 MG/DL (8.5-10.1); CARBON DIOXIDE LEVEL 26 MEQ/L (21-32); CHLORIDE LEVEL 107 MEQ/L (98-107); CREATININE FOR GFR 0.72 MG/DL (0.55-1.30); GLOMERULAR FILTRATION RATE > 60.0 (>60); GLUCOSE, FASTING 87 MG/DL (70-100); POTASSIUM SERUM 4.2 MEQ/L (3.5-5.1); PROLACTIN 8.2 NG/ML; SODIUM LEVEL 139 MEQ/L (136-145); THYROID STIMULATING HORMONE 0.811 uIU/ML (0.358-3.740); TOTAL PROTEIN 7.1 GM/DL (6.4-8.2)
== END ==
LOC: M LAB 14:18
DX: D35.2 Benign neoplasm of pituitary gland (principal)
CPT/HCPCS: 84146

== ENCOUNTER → 2018-08-18 | Outpatient (CLI) | payer BC | LOC: M WUC 12:48 | DX: S83.422A Sprain of lateral collateral ligament of left knee, initial encounter (principal); X58.XXXA Exposure to other specified factors, initial encounter; Y92.9 Unspecified place or not applicable | CPT/HCPCS: 73564 ==

== ENCOUNTER → 2018-09-21 | Outpatient (CLI) | payer BC ==
[~2018-09-21] MED LIST changes: +BACT800T5 PO; -BUPIVACAINE HCL 0.25% 30 ML VIAL As Ordered; +CELL500T PO; +GABA-843 PO; +GABA600T4 PO; -GLYCOPYRROLATE INJ 0.2 MG/ML 2 ML VIAL As Ordered; -LIDOCAINE 2% INJ 100 MG/5 ML SDV (FOR ANES.) As Ordered; +METH1VL IV; -MIDAZOLAM INJ 2 MG/2 ML VIAL (J2250) As Ordered; -NEOSTIGMINE 10 MG/10 ML VIAL (J2710) As Ordered; -ONDANSETRON 4MG/2ML VIAL (J2405) As Ordered; +PRED5TA PO; -PROPOFOL 200 MG/20 ML VIAL As Ordered; -ROCURONIUM BROMIDE 50 MG/5 ML VIAL As Ordered; -fentaNYL 100 MCG/2 ML INJECTION (J3010) As Ordered
[2018-09-21 16:31] LABS: PROLACTIN 10.9 NG/ML; THYROID STIMULATING HORMONE 0.607 uIU/ML (0.358-3.740)
== END ==
LOC: M LAB 15:21
PROVIDERS: ATTEND Psychiatry & Neurology Neurology
DX: G36.0 Neuromyelitis optica [Devic] (principal)

== ENCOUNTER → 2018-11-26 | Outpatient (REF) | payer BC | LOC: M SFHCLERA 09:55 | PROVIDERS: ATTEND Dermatology | DX: D22.5 Melanocytic nevi of trunk (principal) ==

== ENCOUNTER → 2018-12-21 | Outpatient (REF) | payer BC ==
[2018-12-21 19:17] LABS: BASO % 0.3 % (0.0-1.0); EOS # 0.1 10^3/uL (0.0-0.50); EOS % 1.4 % (0.0-3.0); HEMATOCRIT 39.5 % (36.0-47.0); HEMOGLOBIN 12.7 g/dl (12.0-15.5); LYMPH # 2.1 10^3/uL (1.5-6.5); LYMPH % 23.7 % (24.0-44.0); MEAN CORPUSCULAR HGB CONC 32.2 g/dl (32.0-36.5); MONO # 0.5 10^3/uL (0.0-0.8); MONO % 6.1 % (0.0-5.0); NEUTROPHILS % 68.2 % (36.0-66.0); PLATELET COUNT, AUTOMATED 264 10^3/uL (150-450); RED BLOOD COUNT 4.54 10^6/uL (4.00-5.40); WHITE BLOOD COUNT 8.8 10^3/uL (4.0-10.0)
[2018-12-21 19:23] LABS: ALBUMIN 4.2 GM/DL (3.2-5.2); ALT/SGPT 17 U/L (12-78); BILIRUBIN,TOTAL 0.3 MG/DL (0.2-1.0); BLOOD UREA NITROGEN 13 MG/DL (7-18); CALCIUM LEVEL 9.1 MG/DL (8.5-10.1); CARBON DIOXIDE LEVEL 28 MEQ/L (21-32); CHLORIDE LEVEL 106 MEQ/L (98-107); CREATININE FOR GFR 0.72 MG/DL (0.55-1.30); GLOMERULAR FILTRATION RATE > 60.0 (>60); GLUCOSE, FASTING 86 MG/DL (70-100); POTASSIUM SERUM 4.3 MEQ/L (3.5-5.1); SODIUM LEVEL 140 MEQ/L (136-145); TOTAL PROTEIN 7.3 GM/DL (6.4-8.2)
[2018-12-22 10:16] LABS: APPEARANCE, URINE HAZY (CLEAR); BACTERIA, URINE AUTO NEGATIVE (NEGATIVE); BILIRUBIN, URINE AUTO NEGATIVE (NEGATIVE); BLOOD, URINE BLOOD NEGATIVE (NEGATIVE); CALCIUM OXALATE CRYSTALS MODERATE; COLOR, URINE YELLOW (YELLOW); GLUCOSE, URINE (UA) AUTO NEGATIVE (NEGATIVE); KETONE, URINE AUTO NEGATIVE (NEGATIVE); LEUKOCYTE ESTERASE, URINE AUTO NEGATIVE (NEGATIVE); MUCUS, URINE SMALL (NEGATIVE); NITRITE, URINE AUTO NEGATIVE (NEGATIVE); PROTEIN, URINE AUTO NEGATIVE (NEGATIVE); RBC, URINE AUTO 2 /HPF (0-3); SPECIFIC GRAVITY URINE AUTO 1.028 (1.002-1.035); SQUAMOUS EPITHELIAL CELL UR AU 1 /HPF (0-6); UROBILINOGEN, URINE AUTO 0.2 mg/dL (0.0-2.0); WBC, URINE AUTO 0 /HPF (0-3)
== END ==
LOC: M LABNEURO 15:22
PROVIDERS: ATTEND Psychiatry & Neurology Neurology
DX: G36.0 Neuromyelitis optica [Devic] (principal)

== ENCOUNTER 2018-12-22 10:07 | Outpatient (CLI) | payer BC ==
[~2018-12-22] VITALS: Ht 165.1 cm; Wt 59.0 kg
[2018-12-22 10:25] VITALS: BP 149/93
[2018-12-22] MEDS ORDERED: methylPREDNISolone 1,000 MG, VIAL MATE ADAPTER 1 EACH in D5W 250 ML IV ONE (10:30)
[2018-12-22 11:43] VITALS: BP 134/82
== END 2018-12-22 11:45 | disposition home or self-care (01) ==
LOC: M INFU 10:07
PROVIDERS: ATTEND Psychiatry & Neurology Neurology
DX: G36.0 Neuromyelitis optica [Devic] (principal)
CPT/HCPCS: 81001; 87086; 96365; 96366; J2930

== ENCOUNTER 2018-12-23 14:41 | Outpatient (CLI) | payer BC ==
[~2018-12-23] VITALS: Ht 198.1 cm; Wt 59.0 kg
[2018-12-23] MEDS ORDERED: methylPREDNISolone 1,000 MG, VIAL MATE ADAPTER 1 EACH in D5W 250 ML IV ONE (15:00)
[2018-12-23 15:05] VITALS: BP 124/58
[2018-12-23 16:05] VITALS: BP 115/68
== END 2018-12-23 16:05 | disposition home or self-care (01) ==
LOC: M INFU 14:41
PROVIDERS: ATTEND Psychiatry & Neurology Neurology
DX: G36.0 Neuromyelitis optica [Devic] (principal)
CPT/HCPCS: 96365; J2930

== ENCOUNTER 2018-12-24 11:22 | Outpatient (CLI) | payer BC ==
[~2018-12-24] VITALS: Ht 167.6 cm; Wt 59.0 kg
[2018-12-24 11:25] VITALS: BP 123/64
[2018-12-24] MEDS ORDERED: methylPREDNISolone 1,000 MG, VIAL MATE ADAPTER 1 EACH in D5W 250 ML IV ONE (11:30)
[2018-12-24 12:30] VITALS: BP 124/87
== END 2018-12-24 12:45 | disposition home or self-care (01) ==
LOC: M INFU 11:22
PROVIDERS: ATTEND Psychiatry & Neurology Neurology
DX: G36.0 Neuromyelitis optica [Devic] (principal)
CPT/HCPCS: 96365; J2930

== ENCOUNTER → 2019-06-25 | Outpatient (CLI) | payer BC ==
[2019-06-25 13:56] LABS: BASO % 0.5 % (0.0-1.0); EOS # 0.1 10^3/uL (0.0-0.5); EOS % 1.3 % (0.0-3.0); HEMATOCRIT 41.2 % (36.0-47.0); HEMOGLOBIN 13.7 g/dl (12.0-15.5); LYMPH # 1.4 10^3/uL (1.5-5.0); LYMPH % 16.5 % (24.0-44.0); MEAN CORPUSCULAR HEMOGLOBIN 29.5 pg (27.0-33.0); MEAN CORPUSCULAR HGB CONC 33.3 g/dl (32.0-36.5); MEAN CORPUSCULAR VOLUME 88.6 fl (80.0-96.0); MONO # 0.7 10^3/uL (0.0-0.8); MONO % 7.9 % (0.0-5.0); NEUTROPHILS # 6.3 10^3/uL (1.5-8.5); NEUTROPHILS % 73.6 % (36.0-66.0); PLATELET COUNT, AUTOMATED 268 10^3/uL (150-450); RED BLOOD COUNT 4.65 10^6/uL (4.00-5.40); WHITE BLOOD COUNT 8.5 10^3/uL (4.0-10.0)
[2019-06-25 14:47] LABS: ALBUMIN 3.9 GM/DL (3.2-5.2); ALT/SGPT 20 U/L (12-78); BILIRUBIN,TOTAL 0.5 MG/DL (0.2-1.0); BLOOD UREA NITROGEN 8 MG/DL (7-18); CALCIUM LEVEL 8.9 MG/DL (8.5-10.1); CARBON DIOXIDE LEVEL 26 MEQ/L (21-32); CHLORIDE LEVEL 107 MEQ/L (98-107); CREATININE FOR GFR 0.71 MG/DL (0.55-1.30); FOLATE 16.4 NG/ML; GLOMERULAR FILTRATION RATE > 60.0 (>60); GLUCOSE, FASTING 103 MG/DL (70-100); POTASSIUM SERUM 4.4 MEQ/L (3.5-5.1); SODIUM LEVEL 139 MEQ/L (136-145); TOTAL 25(OH) VITAMIN D 15.8 NG/ML (30.0-100.0); TOTAL PROTEIN 6.9 GM/DL (6.4-8.2); VITAMIN B12 LEVEL 468 PG/ML
== END ==
LOC: M LAB 13:09
PROVIDERS: ATTEND Psychiatry & Neurology Neurology
DX: G36.0 Neuromyelitis optica [Devic] (principal); R53.83 Other fatigue

== ENCOUNTER 2020-07-04 14:28 | Outpatient (CLI) | payer BC, MEDICAID ==
[~2020-07-04] VITALS: Ht 167.6 cm; Wt 61.4 kg
[2020-07-04 15:00] VITALS: BP 123/85
[2020-07-04] MEDS ORDERED: methylPREDNISolone 1,000 MG, VIAL MATE ADAPTER 1 EACH in D5W 250 ML IV ONE (15:00)
[2020-07-04 15:58] VITALS: BP 138/86
== END 2020-07-04 16:10 | disposition home or self-care (01) ==
LOC: M INFU 14:28
PROVIDERS: ATTEND Psychiatry & Neurology Neurology
DX: G36.0 Neuromyelitis optica [Devic] (principal)
CPT/HCPCS: 96365; J2930

== ENCOUNTER 2020-07-05 14:22 | Outpatient (CLI) | payer MEDICAID ==
[~2020-07-05] VITALS: Ht 167.6 cm; Wt 61.4 kg
[2020-07-05 14:25] VITALS: BP 134/80
[2020-07-05] MEDS ORDERED: methylPREDNISolone 1,000 MG, VIAL MATE ADAPTER 1 EACH in D5W 250 ML IV ONE (14:30)
[2020-07-05 15:45] VITALS: BP 128/75
== END 2020-07-05 15:45 | disposition home or self-care (01) ==
LOC: M INFU 14:22
PROVIDERS: ATTEND Psychiatry & Neurology Neurology
DX: G36.0 Neuromyelitis optica [Devic] (principal)
CPT/HCPCS: 96365; J2930

== ENCOUNTER 2020-07-06 14:13 | Outpatient (CLI) | payer MEDICAID ==
[~2020-07-06] VITALS: Ht 167.6 cm; Wt 61.4 kg
[2020-07-06] MEDS ORDERED: methylPREDNISolone 1,000 MG, VIAL MATE ADAPTER 1 EACH in D5W 250 ML IV ONE (14:30)
[2020-07-06 14:41] VITALS: BP 136/86
[2020-07-06 15:33] VITALS: BP 122/71
== END 2020-07-06 15:35 | disposition home or self-care (01) ==
LOC: M INFU 14:13
PROVIDERS: ATTEND Psychiatry & Neurology Neurology
DX: G36.0 Neuromyelitis optica [Devic] (principal)
CPT/HCPCS: 96365; J2930

== ENCOUNTER 2020-07-07 14:17 | Outpatient (CLI) | payer MEDICAID ==
[~2020-07-07] VITALS: Ht 167.6 cm; Wt 61.3 kg
[2020-07-07 14:15] VITALS: BP 129/77
[2020-07-07] MEDS ORDERED: methylPREDNISolone 1,000 MG, VIAL MATE ADAPTER 1 EACH in D5W 250 ML IV ONE (14:30)
[2020-07-07 15:45] VITALS: BP 127/83
== END 2020-07-07 15:45 | disposition home or self-care (01) ==
LOC: M INFU 14:17
PROVIDERS: ATTEND Psychiatry & Neurology Neurology
DX: G36.0 Neuromyelitis optica [Devic] (principal)
CPT/HCPCS: 96365; J2930

== ENCOUNTER 2020-07-08 10:01 | Outpatient (CLI) | payer MEDICAID ==
[~2020-07-08] VITALS: Ht 167.6 cm; Wt 61.4 kg
[2020-07-08] MEDS ORDERED: methylPREDNISolone 1,000 MG, VIAL MATE ADAPTER 1 EACH in D5W 250 ML IV ONE (10:45)
== END 2020-07-08 13:00 | disposition home or self-care (01) ==
LOC: M INFU 10:01 → M OPCLI5PR 10:01 → M MS5PR 10:04 → M OPCLI5PR 13:00
PROVIDERS: ATTEND Psychiatry & Neurology Neurology
DX: G36.0 Neuromyelitis optica [Devic] (principal)
CPT/HCPCS: 96365; J2930

== ENCOUNTER → 2020-11-21 | Outpatient (CLI) | payer OTHER ==
[~2020-11-21] MED LIST changes: +GABA-282 PO; -GABA-843 PO
[2020-11-21 13:05] LABS: BASO # 0.1 10^3/uL (0.0-0.2); BASO % 0.8 % (0.0-1.0); EOS # 0.1 10^3/uL (0.0-0.5); EOS % 1.1 % (0.0-3.0); HEMATOCRIT 39.4 % (36.0-47.0); HEMOGLOBIN 12.9 g/dl (12.0-15.5); LYMPH # 1.2 10^3/uL (1.5-5.0); LYMPH % 19.6 % (24.0-44.0); MEAN CORPUSCULAR HEMOGLOBIN 28.2 pg (27.0-33.0); MEAN CORPUSCULAR HGB CONC 32.7 g/dl (32.0-36.5); MONO # 0.4 10^3/uL (0.0-0.8); NEUTROPHILS # 4.5 10^3/uL (1.5-8.5); NEUTROPHILS % 71.3 % (36.0-66.0); PLATELET COUNT, AUTOMATED 281 10^3/uL (150-450); RED BLOOD COUNT 4.58 10^6/uL (4.00-5.40); WHITE BLOOD COUNT 6.3 10^3/uL (4.0-10.0)
[2020-11-21 14:38] LABS: ALT/SGPT 16 U/L (12-78); BILIRUBIN,TOTAL 0.5 MG/DL (0.2-1.0); BLOOD UREA NITROGEN 11 MG/DL (7-18); CALCIUM LEVEL 9.2 MG/DL (8.5-10.1); CARBON DIOXIDE LEVEL 29 MEQ/L (21-32); CHLORIDE LEVEL 106 MEQ/L (98-107); CREATININE FOR GFR 0.84 MG/DL (0.55-1.30); FREE T4 0.99 NG/DL (0.76-1.46); GLOMERULAR FILTRATION RATE > 60.0 (>60); GLUCOSE, FASTING 121 MG/DL (70-100); POTASSIUM SERUM 3.8 MEQ/L (3.5-5.1); SODIUM LEVEL 139 MEQ/L (136-145); THYROID STIMULATING HORMONE 0.594 uIU/ML (0.358-3.740); TOTAL PROTEIN 7.2 GM/DL (6.4-8.2)
== END ==
LOC: M LAB 12:15
PROVIDERS: ATTEND Family Medicine
DX: F32.9 Major depressive disorder, single episode, unspecified (principal)

== ENCOUNTER → 2020-12-26 | Outpatient (CLI) | payer OTHER ==
[2020-12-26 15:48] LABS: HEMATOCRIT 39.9 % (36.0-47.0); HEMOGLOBIN 12.8 g/dl (12.0-15.5); MEAN CORPUSCULAR HEMOGLOBIN 28.3 pg (27.0-33.0); MEAN CORPUSCULAR HGB CONC 32.1 g/dl (32.0-36.5); MEAN CORPUSCULAR VOLUME 88.1 fl (80.0-96.0); PLATELET COUNT, AUTOMATED 283 10^3/uL (150-450); RED BLOOD COUNT 4.53 10^6/uL (4.00-5.40); WHITE BLOOD COUNT 6.3 10^3/uL (4.0-10.0)
[2020-12-26 16:14] LABS: ALBUMIN 3.9 GM/DL (3.2-5.2); BILIRUBIN,DIRECT 0.1 MG/DL (0.0-0.2); BILIRUBIN,TOTAL 0.2 MG/DL (0.2-1.0); TOTAL PROTEIN 7.3 GM/DL (6.4-8.2)
[2020-12-27 10:00] LABS: H PYLORI QUALITATIVE IgG NEGATIVE (NEGATIVE)
[2020-12-29 04:07] LABS: IGASUB3 24.8 mg/dL (13.4-97.9); IgA SERUM (part of Subclasses) 213 mg/dL (87-352); TISSUE TRANSGLUTAMINASE IgA <2 U/mL (0-3)
== END ==
LOC: M LAB 15:07
PROVIDERS: ATTEND Internal Medicine Gastroenterology
DX: R11.2 Nausea with vomiting, unspecified (principal)

== ENCOUNTER → 2021-02-14 | Outpatient (REF) | payer OTHER | LOC: M SFHCADAM 13:14 | PROVIDERS: ATTEND Family Medicine | DX: Z12.4 Encounter for screening for malignant neoplasm of cervix (principal) ==

== ENCOUNTER 2021-04-17 14:42 | Emergency (ER) | payer OTHER ==
[~2021-04-17] VITALS: Ht 167.6 cm; Wt 58.0 kg
[2021-04-17] MEDS ORDERED: ALBUTEROL 90 MCG/ACT 8GM HFA INHALER INH ONE (17:10)
[2021-04-17] MEDS ORDERED: NS 1,000 ML IV ONE (17:10)
[2021-04-17] MEDS ORDERED: methylPREDNISolone 125MG 2ML VIAL IV ONE (17:10)
[2021-04-17 17:38] LABS: BASO % 0.4 % (0.0-1.0); EOS # 0.1 10^3/uL (0.0-0.5); EOS % 1.4 % (0.0-3.0); HEMATOCRIT 37.1 % (36.0-47.0); LYMPH # 1.7 10^3/uL (1.5-5.0); MEAN CORPUSCULAR HEMOGLOBIN 28.4 pg (27.0-33.0); MEAN CORPUSCULAR HGB CONC 32.3 g/dl (32.0-36.5); MEAN CORPUSCULAR VOLUME 87.9 fl (80.0-96.0); MONO # 0.6 10^3/uL (0.0-0.8); MONO % 5.8 % (2.0-8.0); NEUTROPHILS # 7.4 10^3/uL (1.5-8.5); NEUTROPHILS % 75.1 % (36.0-66.0); PLATELET COUNT, AUTOMATED 220 10^3/uL (150-450); RED BLOOD COUNT 4.22 10^6/uL (4.00-5.40); WHITE BLOOD COUNT 9.8 10^3/uL (4.0-10.0)
[2021-04-17 18:02] LABS: ALT/SGPT 21 U/L (12-78); CPK CREATINE PHOSPHOKINASE 30 U/L (26-192)
[2021-04-17 18:03] LABS: ALBUMIN 3.9 GM/DL (3.2-5.2); BILIRUBIN,DIRECT < 0.1 MG/DL (0.0-0.2); BILIRUBIN,TOTAL 0.2 MG/DL (0.2-1.0); CK-MB VALUE MASS < 1.0 NG/ML (<3.6); MB/CK RELATIVE INDEX 3.33 (< OR =4); TOTAL PROTEIN 6.8 GM/DL (6.4-8.2); TROPONIN I < 0.02 NG/ML (< 0.10)
--- NOTE | 2021-04-17 18:51 | REP ---
INDICATION: DYSPNEA/COUGH. COMPARISON: None. TECHNIQUE: PA and lateral FINDINGS: The superior mediastinal structures are midline. The cardiac silhouette is unremarkable in size, shape, and position. The diaphragmatic surfaces of the lungs are regular, and the costophrenic angles are clear. The pulmonary jordan are clear. The imaged osseous structures are intact. IMPRESSION: There is no acute cardiopulmonary disease. <Electronically signed by Wyatt Wayne > 04/17/21 [id number]
[2021-04-17] MEDS ORDERED: PRED10TA2 PO (19:40)
[2021-04-17] MEDS ORDERED: VENTAER INH (19:40)
[2021-04-17 20:21] VITALS: BP 125/77
--- NOTE | 2021-04-18 07:20 | ECGEPIP ---
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
[2021-04-18] MEDS ORDERED: NOXI1TAB PO (21:45)
[2021-04-18] MEDS ORDERED: EQL50TAB2 PO (21:45)
== END 2021-04-17 20:28 | disposition home or self-care (01) ==
LOC: M ED 14:42
DX: R06.02 Shortness of breath (principal); R07.89 Other chest pain; T50.995A Adverse effect of other drugs, medicaments and biological substances, initial encounter; Y92.89 Other specified places as the place of occurrence of the external cause; Z79.899 Other long term (current) drug therapy; F12.20 Cannabis dependence, uncomplicated
CPT/HCPCS: 71046; 80047; 80076; 82550; 82553; 83605; 84702; 85025; 93005; 94640; 96361; 96374; 99284; J2930

== ENCOUNTER 2021-04-18 21:24 | Emergency (ER) | payer OTHER ==
[~2021-04-18] VITALS: Ht 167.6 cm; Wt 56.9 kg
[~2021-04-18 21:24] MED LIST changes: +PRED10TA2 PO; +VENTAER INH
[2021-04-18] MEDS ORDERED: EQL50TAB2 PO (21:45)
[2021-04-18] MEDS ORDERED: NOXI1TAB PO (21:45)
[2021-04-18 23:00] VITALS: BP 121/73
== END 2021-04-18 23:06 | disposition home or self-care (01) ==
LOC: M ED 22:50
DX: R07.89 Other chest pain (principal); H46.9 Unspecified optic neuritis; Z79.52 Long term (current) use of systemic steroids; Z79.899 Other long term (current) drug therapy

== ENCOUNTER → 2021-06-14 | Outpatient (CLI) | payer BC ==
[~2021-06-14] MED LIST changes: +EQL50TAB2 PO; +NOXI1TAB PO
[2021-06-14 10:29] LABS: BASO # 0.1 10^3/uL (0.0-0.2); BASO % 0.9 % (0.0-1.0); EOS # 0.1 10^3/uL (0.0-0.5); EOS % 2.2 % (0.0-3.0); HEMATOCRIT 41.2 % (36.0-47.0); HEMOGLOBIN 13.4 g/dl (12.0-15.5); MEAN CORPUSCULAR HEMOGLOBIN 29.1 pg (27.0-33.0); MEAN CORPUSCULAR HGB CONC 32.5 g/dl (32.0-36.5); MEAN CORPUSCULAR VOLUME 89.4 fl (80.0-96.0); MONO # 0.6 10^3/uL (0.0-0.8); MONO % 11.3 % (2.0-8.0); NEUTROPHILS # 3.8 10^3/uL (1.5-8.5); NEUTROPHILS % 68.2 % (36.0-66.0); PLATELET COUNT, AUTOMATED 210 10^3/uL (150-450); RED BLOOD COUNT 4.61 10^6/uL (4.00-5.40); WHITE BLOOD COUNT 5.6 10^3/uL (4.0-10.0)
[2021-06-14 10:35] LABS: ALT/SGPT 20 U/L (12-78); BILIRUBIN,TOTAL 0.6 MG/DL (0.2-1.0); BLOOD UREA NITROGEN 11 MG/DL (7-18); CALCIUM LEVEL 9.1 MG/DL (8.5-10.1); CARBON DIOXIDE LEVEL 26 MEQ/L (21-32); CHLORIDE LEVEL 107 MEQ/L (98-107); CREATININE FOR GFR 0.61 MG/DL (0.55-1.30); GLOMERULAR FILTRATION RATE > 60.0 (>60); GLUCOSE, FASTING 82 MG/DL (70-100); POTASSIUM SERUM 4.3 MEQ/L (3.5-5.1); SODIUM LEVEL 140 MEQ/L (136-145); TOTAL PROTEIN 7.2 GM/DL (6.4-8.2)
== END ==
LOC: M LAB 08:12
PROVIDERS: ATTEND Nurse Practitioner
DX: G36.0 Neuromyelitis optica [Devic] (principal); Z79.899 Other long term (current) drug therapy

== ENCOUNTER → 2021-10-27 | Outpatient (CLI) | payer BC ==
[2021-10-27 10:49] LABS: ALBUMIN 3.6 GM/DL (3.2-5.2); ALT/SGPT 21 U/L (12-78); BILIRUBIN,TOTAL 0.6 MG/DL (0.2-1.0); BLOOD UREA NITROGEN 10 MG/DL (7-18); CALCIUM LEVEL 8.9 MG/DL (8.5-10.1); CARBON DIOXIDE LEVEL 26 MEQ/L (21-32); CHLORIDE LEVEL 109 MEQ/L (98-107); CREATININE FOR GFR 0.62 MG/DL (0.55-1.30); FREE T4 0.85 NG/DL (0.76-1.46); GLOMERULAR FILTRATION RATE > 60.0 (>60); GLUCOSE, FASTING 92 MG/DL (70-100); POTASSIUM SERUM 4.1 MEQ/L (3.5-5.1); SODIUM LEVEL 140 MEQ/L (136-145); THYROID STIMULATING HORMONE 0.654 uIU/ML (0.358-3.740); TOTAL PROTEIN 6.7 GM/DL (6.4-8.2)
== END ==
LOC: M LAB 09:27 → M PLALAB 09:27
PROVIDERS: ATTEND Family Medicine
DX: E05.90 Thyrotoxicosis, unspecified without thyrotoxic crisis or storm (principal); Z79.52 Long term (current) use of systemic steroids

== ENCOUNTER → 2021-12-12 | Outpatient (REF) | LOC: M EMP 12:46 | PROVIDERS: ATTEND Family Medicine | DX: Z11.52 Encounter for screening for COVID-19 (principal) ==

== ENCOUNTER → 2022-03-25 | Outpatient (CLI) | payer BC ==
[2022-03-25 09:51] LABS: THYROID STIMULATING HORMONE 1.05 uIU/ML (0.358-3.740)
[2022-03-25 12:10] LABS: PROLACTIN 17.9 NG/ML; TOTAL 25(OH) VITAMIN D 17.9 NG/ML (30.0-100.0)
== END ==
LOC: M LAB 08:39
PROVIDERS: ATTEND Psychiatry & Neurology Neurology
DX: G36.0 Neuromyelitis optica [Devic] (principal); D35.2 Benign neoplasm of pituitary gland

== ENCOUNTER → 2022-07-07 | Outpatient (REF) | LOC: M LABSMTC 11:02 | PROVIDERS: ATTEND Family Medicine | DX: Z11.52 Encounter for screening for COVID-19 (principal) ==

== ENCOUNTER 2022-08-10 16:50 | Emergency (ER) | payer BC ==
[~2022-08-10] VITALS: Ht 167.6 cm; Wt 62.6 kg
[2022-08-10] MEDS ORDERED: PRED1TABL PO (17:01)
[2022-08-10] MEDS ORDERED: NS 1,000 ML IV ONE (17:30)
[2022-08-10] MEDS ORDERED: ONDANSETRON 4MG 2ML VIAL IV ONE (17:30)
[2022-08-10] MEDS ORDERED: KETOROLAC 30 MG/ML 1ML VIAL IV ONE (17:30)
[2022-08-10 17:50] LABS: BASO % 0.5 % (0.0-1.0); EOS # 0.2 10^3/uL (0.0-0.5); EOS % 2.9 % (0.0-3.0); HEMATOCRIT 38.1 % (36.0-47.0); HEMOGLOBIN 12.8 g/dl (12.0-15.5); LYMPH # 1.7 10^3/uL (1.5-5.0); LYMPH % 20.5 % (24.0-44.0); MEAN CORPUSCULAR HEMOGLOBIN 29.4 pg (27.0-33.0); MEAN CORPUSCULAR HGB CONC 33.6 g/dl (32.0-36.5); MEAN CORPUSCULAR VOLUME 87.6 fl (80.0-96.0); MONO # 0.9 10^3/uL (0.0-0.8); MONO % 10.4 % (2.0-8.0); NEUTROPHILS # 5.4 10^3/uL (1.5-8.5); NEUTROPHILS % 65.5 % (36.0-66.0); PLATELET COUNT, AUTOMATED 246 10^3/uL (150-450); RED BLOOD COUNT 4.35 10^6/uL (4.00-5.40); WHITE BLOOD COUNT 8.3 10^3/uL (4.0-10.0)
[2022-08-10] MEDS ORDERED: ISOVUE-370 76% 100ML VIAL As Ordered ONE (18:07)
[2022-08-10 18:08] LABS: LIPASE 32 U/L (12-53)
[2022-08-10 18:10] LABS: ALBUMIN 4.2 G/DL (3.2-5.2); ALKALINE PHOSPHATASE 60 U/L (46-116); ALT/SGPT 16 U/L (7.0-40); AST/SGOT 24 U/L (<34); BILIRUBIN,DIRECT < 0.1 MG/DL (<0.4); BILIRUBIN,TOTAL 0.3 MG/DL (0.3-1.2); TOTAL PROTEIN 7.1 G/DL (5.7-8.2)
[2022-08-10 18:26] LABS: RSV AMPLIFICATION NEGATIVE (NEGATIVE)
[2022-08-10] MEDS ORDERED: MIRA3350 PO (19:10)
[2022-08-10] MEDS ORDERED: BACTRIM 160MG/800MG DS TAB PO ONE (19:10)
[2022-08-10] MEDS ORDERED: ONDA4TAB6 PO (19:10)
[2022-08-10] MEDS ORDERED: BACT800T5 PO (19:10)
[2022-08-10 19:16] VITALS: BP 117/59
== END 2022-08-10 19:25 | disposition home or self-care (01) ==
LOC: M ED 16:50
DX: N30.00 Acute cystitis without hematuria (principal); K59.00 Constipation, unspecified; R11.0 Nausea; R51.9 Headache, unspecified; H46.9 Unspecified optic neuritis; R93.2 Abnormal findings on diagnostic imaging of liver and biliary tract; N28.89 Other specified disorders of kidney and ureter; Z79.51 Long term (current) use of inhaled steroids; Z79.899 Other long term (current) drug therapy
CPT/HCPCS: 74177; 80047; 80076; 81000; 83690; 84702; 85025; 87086; 87631; 96361; 96374; 96375; 99284; J1885; J2405

== ENCOUNTER 2022-08-24 20:21 | Emergency (ER) | payer BC ==
[~2022-08-24] VITALS: Ht 167.6 cm; Wt 62.2 kg
[~2022-08-24 20:21] MED LIST changes: +MIRA3350 PO; +ONDA4TAB6 PO; +PRED1TABL PO
[2022-08-24 20:52] LABS: BASO # 0.1 10^3/uL (0.0-0.2); BASO % 0.7 % (0.0-1.0); EOS # 0.3 10^3/uL (0.0-0.5); EOS % 4.1 % (0.0-3.0); HEMATOCRIT 36.2 % (36.0-47.0); HEMOGLOBIN 12.1 g/dl (12.0-15.5); LYMPH % 27.4 % (24.0-44.0); MEAN CORPUSCULAR HEMOGLOBIN 29.4 pg (27.0-33.0); MEAN CORPUSCULAR HGB CONC 33.4 g/dl (32.0-36.5); MEAN CORPUSCULAR VOLUME 87.9 fl (80.0-96.0); MONO # 0.7 10^3/uL (0.0-0.8); MONO % 9.8 % (2.0-8.0); NEUTROPHILS # 4.1 10^3/uL (1.5-8.5); NEUTROPHILS % 57.7 % (36.0-66.0); PLATELET COUNT, AUTOMATED 307 10^3/uL (150-450); RED BLOOD COUNT 4.12 10^6/uL (4.00-5.40); WHITE BLOOD COUNT 7.1 10^3/uL (4.0-10.0)
[2022-08-24 21:13] LABS: CK-MB VALUE MASS < 1.0 NG/ML (<3.6)
[2022-08-24 21:15] LABS: BLOOD UREA NITROGEN 12 MG/DL (9-23); CALCIUM LEVEL 9.1 MG/DL (8.5-10.1); CARBON DIOXIDE LEVEL 26 MMOL/L (20-31); CHLORIDE LEVEL 106 MMOL/L (98-107); CPK CREATINE PHOSPHOKINASE 31 U/L (34-145); CREATININE FOR GFR 0.63 MG/DL (0.55-1.30); GLOMERULAR FILTRATION RATE > 60.0 (>60); GLUCOSE, FASTING 99 MG/DL (60-100); MB/CK RELATIVE INDEX 3.22 (< OR =4); POTASSIUM SERUM 4.4 MMOL/L (3.5-5.1); SODIUM LEVEL 140 MMOL/L (136-145)
[2022-08-24] MEDS ORDERED: KETOROLAC 60MG 2ML VIAL IM ONE (21:30)
[2022-08-24] MEDS ORDERED: ISOVUE-370 76% 100ML VIAL As Ordered ONE (21:53)
[2022-08-24] MEDS ORDERED: NS 1,000 ML IV ONE (21:55)
[2022-08-24] MEDS ORDERED: KETOROLAC 30 MG/ML 1ML VIAL IV ONE (21:55)
[2022-08-24 22:09] LABS: HCG, SERUM QUALITATIVE NEGATIVE (NEGATIVE)
[2022-08-24 23:05] VITALS: BP 117/68
== END 2022-08-24 23:00 | disposition home or self-care (01) ==
LOC: M ED 20:21
DX: M94.0 Chondrocostal junction syndrome [Tietze] (principal); R07.89 Other chest pain; G35 Multiple sclerosis; K59.00 Constipation, unspecified; Z79.899 Other long term (current) drug therapy
CPT/HCPCS: 71045; 71275; 80048; 82550; 82553; 84484; 84703; 85025; 93005; 93041; 94760; 96361; 96374; 99285; J1885

== ENCOUNTER → 2022-10-07 | Outpatient (CLI) | payer BC | LOC: M WHC 07:23 | PROVIDERS: ATTEND Family Medicine | DX: N94.89 Other specified conditions associated with female genital organs and menstrual cycle (principal); Z3A.01 Less than 8 weeks gestation of pregnancy ==

== ENCOUNTER → 2022-10-14 | Outpatient (CLI) | payer BC ==
[2022-10-14 09:31] LABS: BASO % 0.3 % (0.0-1.0); EOS # 0.2 10^3/uL (0.0-0.5); HEMATOCRIT 37.7 % (36.0-47.0); HEMOGLOBIN 12.7 g/dl (12.0-15.5); LYMPH # 1.4 10^3/uL (1.5-5.0); LYMPH % 14.9 % (24.0-44.0); MEAN CORPUSCULAR HEMOGLOBIN 29.8 pg (27.0-33.0); MEAN CORPUSCULAR HGB CONC 33.7 g/dl (32.0-36.5); MEAN CORPUSCULAR VOLUME 88.5 fl (80.0-96.0); MONO # 0.8 10^3/uL (0.0-0.8); MONO % 8.3 % (2.0-8.0); NEUTROPHILS # 6.7 10^3/uL (1.5-8.5); NEUTROPHILS % 74.2 % (36.0-66.0); PLATELET COUNT, AUTOMATED 254 10^3/uL (150-450); RED BLOOD COUNT 4.26 10^6/uL (4.00-5.40); WHITE BLOOD COUNT 9.1 10^3/uL (4.0-10.0)
[2022-10-14 10:06] LABS: FREE T4 1.04 NG/DL (0.89-1.76); THYROID STIMULATING HORMONE 0.415 uIU/ML (0.55-4.78)
[2022-10-14 10:09] LABS: ALBUMIN 3.7 G/DL (3.2-5.2); ALKALINE PHOSPHATASE 51 U/L (46-116); ALT/SGPT 12 U/L (7.0-40); AST/SGOT 16 U/L (<34); BILIRUBIN,TOTAL 0.6 MG/DL (0.3-1.2); BLOOD UREA NITROGEN 8 MG/DL (9-23); CALCIUM LEVEL 9.1 MG/DL (8.5-10.1); CARBON DIOXIDE LEVEL 23 MMOL/L (20-31); CHLORIDE LEVEL 106 MMOL/L (98-107); CREATININE FOR GFR 0.59 MG/DL (0.55-1.30); GLOMERULAR FILTRATION RATE > 60.0 (>60); GLUCOSE, FASTING 85 MG/DL (60-100); POTASSIUM SERUM 4.2 MMOL/L (3.5-5.1); SODIUM LEVEL 137 MMOL/L (136-145); TOTAL PROTEIN 6.3 G/DL (5.7-8.2)
== END ==
LOC: M LAB 08:30
PROVIDERS: ATTEND Family Medicine
DX: Z36.9 Encounter for antenatal screening, unspecified (principal)

== ENCOUNTER → 2022-11-04 | Outpatient (REF) | LOC: M LABSMTC 08:52 | PROVIDERS: ATTEND Family Medicine | DX: Z11.52 Encounter for screening for COVID-19 (principal) ==

== ENCOUNTER 2023-05-14 00:30 | Outpatient (CLI) | payer BC ==
[~2023-05-14] VITALS: Ht 167.6 cm; Wt 79.8 kg
[2023-05-14 00:42] VITALS: BP 129/81
[2023-05-14] MEDS ORDERED: PRED1TABL PO (00:51)
[2023-05-14] MEDS ORDERED: RA M500C PO (00:53)
[2023-05-14] MEDS ORDERED: IRON27TA2 PO (00:53)
[2023-05-14] MEDS ORDERED: TUMS500C PO (00:53)
[2023-05-14] MEDS ORDERED: ASCO250T20 PO (00:54)
[2023-05-14] MEDS ORDERED: HOME MED LIST COMPLETE! XX SCH (00:55)
== END 2023-05-14 01:54 | disposition home or self-care (01) ==
LOC: M LDO 00:30
PROVIDERS: ATTEND Specialist
DX: O26.853 Spotting complicating pregnancy, third trimester (principal); Z3A.38 38 weeks gestation of pregnancy
CPT/HCPCS: 59025; G0463

== ENCOUNTER → 2023-07-28 | Outpatient (CLI) | payer BC ==
[~2023-07-28] MED LIST changes: +ASCO250T20 PO; +IRON27TA2 PO; +RA M500C PO; +TUMS500C PO
[2023-07-28 14:17] LABS: BASO # 0.1 10^3/uL (0.0-0.2); BASO % 0.8 % (0.0-1.0); EOS # 0.2 10^3/uL (0.0-0.5); EOS % 3.3 % (0.0-3.0); HEMATOCRIT 43.5 % (36.0-47.0); HEMOGLOBIN 14.2 g/dl (12.0-15.5); LYMPH # 1.1 10^3/uL (1.5-5.0); LYMPH % 17.4 % (24.0-44.0); MEAN CORPUSCULAR HEMOGLOBIN 29.8 pg (27.0-33.0); MEAN CORPUSCULAR HGB CONC 32.6 g/dl (32.0-36.5); MEAN CORPUSCULAR VOLUME 91.2 fl (80.0-96.0); MONO # 0.5 10^3/uL (0.0-0.8); MONO % 7.9 % (2.0-8.0); NEUTROPHILS # 4.5 10^3/uL (1.5-8.5); NEUTROPHILS % 70.4 % (36.0-66.0); PLATELET COUNT, AUTOMATED 307 10^3/uL (150-450); RED BLOOD COUNT 4.77 10^6/uL (4.00-5.40); WHITE BLOOD COUNT 6.3 10^3/uL (4.0-10.0)
[2023-07-28 14:22] LABS: FREE T4 0.98 NG/DL (0.89-1.76)
[2023-07-28 14:23] LABS: THYROID STIMULATING HORMONE 0.81 uIU/ML (0.55-4.78)
== END ==
LOC: M PLALAB 10:12
PROVIDERS: ATTEND Family Medicine
DX: E05.90 Thyrotoxicosis, unspecified without thyrotoxic crisis or storm (principal)

== ENCOUNTER → 2023-07-28 | Outpatient (CLI) | payer BC | LOC: M WHC 09:11 | PROVIDERS: ATTEND Family Medicine | DX: N94.89 Other specified conditions associated with female genital organs and menstrual cycle (principal) ==

== ENCOUNTER 2023-11-28 12:39 | Outpatient (CLI) | payer BC ==
[2023-11-28 13:20] VITALS: BP 125/72; O2SAT 100
[2023-11-28] MEDS: methylPREDNISolone 1,000 MG, VIAL MATE ADAPTER 1 EACH in NS 250 ML IV ONE (13:41)
[2023-11-28 14:55] VITALS: BP 128/78; O2SAT 99
[2023-11-29] MEDS ORDERED: methylPREDNISolone 1,000 MG, VIAL MATE ADAPTER 1 EACH in NS 250 ML IV ONE (13:00)
== END 2023-11-28 14:55 ==
LOC: M INFU 12:39
PROVIDERS: ATTEND Psychiatry & Neurology Neurology
DX: G36.0 Neuromyelitis optica [Devic] (principal)
CPT/HCPCS: 96365; J2930

== ENCOUNTER 2023-11-29 11:31 | Outpatient (CLI) | payer BC ==
[2023-11-29 12:07] VITALS: BP 120/72; TEMP 97.9; O2SAT 95
[2023-11-29] MEDS: methylPREDNISolone 1,000 MG, VIAL MATE ADAPTER 1 EACH in NS 250 ML IV ONE (12:37)
== END 2023-11-29 13:45 | disposition home or self-care (01) ==
LOC: M OPCLI5PR 11:31 → M MS5PR 11:34 → M OPCLI5PR 13:45
PROVIDERS: ATTEND Psychiatry & Neurology Neurology
DX: G36.0 Neuromyelitis optica [Devic] (principal)
CPT/HCPCS: 96365; J2930

== ENCOUNTER 2023-11-30 12:52 | Outpatient (CLI) | payer BC ==
[2023-11-30] MEDS: methylPREDNISolone 1,000 MG, VIAL MATE ADAPTER 1 EACH in NS 250 ML IV ONE (13:16)
== END 2023-11-30 14:20 | disposition home or self-care (01) ==
LOC: M OPCLI5PR 12:52 → M MS5PR 12:53 → M OPCLI5PR 14:20
PROVIDERS: ATTEND Psychiatry & Neurology Neurology
DX: G36.0 Neuromyelitis optica [Devic] (principal)
CPT/HCPCS: 96365; J2930

== ENCOUNTER → 2024-01-29 | Outpatient (CLI) | payer BC | LOC: M RAD 06:36 | PROVIDERS: ATTEND Advanced Practice Midwife | DX: N91.2 Amenorrhea, unspecified (principal) ==

== ENCOUNTER → 2024-03-23 | Outpatient (CLI) | payer BC ==
[~2024-03-23] MED LIST changes: +ONDA-282 PO; -ONDA4TAB6 PO
[2024-03-23 11:58] LABS: FREE T4 0.97 NG/DL (0.89-1.76); THYROID STIMULATING HORMONE 0.825 uIU/ML (0.55-4.78); TOTAL 25(OH) VITAMIN D 22.5 NG/ML (20.0-100.0)
== END ==
LOC: M LAB 09:08
PROVIDERS: ATTEND Family Medicine
DX: E05.90 Thyrotoxicosis, unspecified without thyrotoxic crisis or storm (principal); E55.9 Vitamin D deficiency, unspecified

== ENCOUNTER → 2024-03-31 | Outpatient (CLI) | payer BC | LOC: M RAD 11:17 | PROVIDERS: ATTEND Advanced Practice Midwife | DX: Z34.90 Encounter for supervision of normal pregnancy, unspecified, unspecified trimester (principal); G36.0 Neuromyelitis optica [Devic] ==

== ENCOUNTER → 2024-04-05 | Outpatient (REF) | LOC: M EMP 08:40 | PROVIDERS: ATTEND Family Medicine | DX: Z11.52 Encounter for screening for COVID-19 (principal) ==

== ENCOUNTER → 2024-05-06 | Outpatient (CLI) | payer BC | LOC: M WHC 14:20 | PROVIDERS: ATTEND Advanced Practice Midwife | DX: Z53.9 Procedure and treatment not carried out, unspecified reason (principal) ==

== ENCOUNTER → 2024-05-17 | Outpatient (CLI) | payer BC ==
[~2024-05-17] MED LIST changes: +GABA-1490 PO; -GABA600T4 PO
== END ==
LOC: M RAD 10:22
PROVIDERS: ATTEND Advanced Practice Midwife
DX: Z36.2 Encounter for other antenatal screening follow-up (principal); Z3A.26 26 weeks gestation of pregnancy

== ENCOUNTER → 2024-06-28 | Outpatient (REF) ==
[~2024-06-28] MED LIST changes: +GABA-1172 PO; -GABA-282 PO
== END ==
LOC: M EMP 09:30
PROVIDERS: ATTEND Family Medicine
DX: Z11.52 Encounter for screening for COVID-19 (principal)

== ENCOUNTER 2024-07-12 15:51 | Emergency (ER) | payer BC ==
[2024-07-12] MEDS ORDERED: MULTTAB20 PO (16:18)
[2024-07-12] MEDS ORDERED: ZOLO100T PO (16:18)
== END 2024-07-12 18:17 | disposition admitted as inpatient to this hospital (09) ==
LOC: M ED 15:51
DX: Z53.21 Procedure and treatment not carried out due to patient leaving prior to being seen by health care provider (principal)

== ENCOUNTER 2024-07-12 15:55 | Outpatient (CLI) | payer BC ==
[~2024-07-12] VITALS: Ht 167.6 cm; Wt 82.4 kg
[2024-07-12 16:13] VITALS: BP 130/74
[2024-07-12] MEDS ORDERED: MULTTAB20 PO (16:18)
[2024-07-12] MEDS ORDERED: ZOLO100T PO (16:18)
[2024-07-12] MEDS ORDERED: HOME MED LIST COMPLETE! XX SCH (16:30)
[2024-07-12 16:52] LABS: APPEARANCE, URINE CLEAR (CLEAR); BACTERIA, URINE AUTO NEGATIVE (NEGATIVE); BILIRUBIN, URINE AUTO NEGATIVE (NEGATIVE); BLOOD, URINE BLOOD NEGATIVE (NEGATIVE); COLOR, URINE YELLOW (YELLOW); GLUCOSE, URINE (UA) AUTO 1+ mg/dL (NEGATIVE); KETONE, URINE AUTO TRACE mg/dL (NEGATIVE); LEUKOCYTE ESTERASE, URINE AUTO NEGATIVE (NEGATIVE); MUCUS, URINE SMALL (NEGATIVE); NITRITE, URINE AUTO NEGATIVE (NEGATIVE); PROTEIN, URINE AUTO NEGATIVE (NEGATIVE); RBC, URINE AUTO 0 /HPF (0-3); SPECIFIC GRAVITY URINE AUTO 1.016 (1.002-1.035); SQUAMOUS EPITHELIAL CELL UR AU 0 /HPF (0-6); UROBILINOGEN, URINE AUTO 0.2 mg/dL (0.0-2.0); WBC, URINE AUTO 0 /HPF (0-3)
[2024-07-12 17:49] LABS: BASO % 0.2 % (0.0-1.0); EOS # 0.2 10^3/uL (0.0-0.5); EOS % 1.2 % (0.0-3.0); HEMOGLOBIN 11.5 g/dl (12.0-15.5); LYMPH # 1.3 10^3/uL (1.5-5.0); LYMPH % 10.2 % (24.0-44.0); MEAN CORPUSCULAR HGB CONC 33.8 g/dl (32.0-36.5); MEAN CORPUSCULAR VOLUME 91.6 fl (80.0-96.0); MONO # 0.9 10^3/uL (0.0-0.8); MONO % 6.8 % (2.0-8.0); NEUTROPHILS # 10.2 10^3/uL (1.5-8.5); PLATELET COUNT, AUTOMATED 234 10^3/uL (150-450); RED BLOOD COUNT 3.71 10^6/uL (4.00-5.40); WHITE BLOOD COUNT 12.6 10^3/uL (4.0-10.0)
[2024-07-12 18:11] LABS: ALBUMIN 2.4 G/DL (3.2-5.2); ALKALINE PHOSPHATASE 130 U/L (35-104); ALT/SGPT 14 U/L (7.0-40); AST/SGOT < 8 U/L (<34); BILIRUBIN,TOTAL 0.3 MG/DL (0.3-1.2); BLOOD UREA NITROGEN 6 MG/DL (9-23); CARBON DIOXIDE LEVEL 23 MMOL/L (20-31); CHLORIDE LEVEL 108 MMOL/L (98-107); CREATININE FOR GFR 0.46 MG/DL (0.55-1.30); GLOMERULAR FILTRATION RATE > 60.0 (>60); GLUCOSE, FASTING 106 MG/DL (60-100); POTASSIUM SERUM 3.8 MMOL/L (3.5-5.1); SODIUM LEVEL 138 MMOL/L (136-145); TOTAL PROTEIN 5.7 G/DL (5.7-8.2)
[2024-07-12 19:55] VITALS: BP 119/69
[2024-07-12] MEDS: ACETAMINOPHEN 500 MG TAB PO ONE (20:56)
== END 2024-07-12 20:58 | disposition home or self-care (01) ==
LOC: M LDO 15:55
PROVIDERS: ATTEND Advanced Practice Midwife
DX: O26.893 Other specified pregnancy related conditions, third trimester (principal); O99.283 Endocrine, nutritional and metabolic diseases complicating pregnancy, third trimester; O99.353 Diseases of the nervous system complicating pregnancy, third trimester; O99.893 Other specified diseases and conditions complicating puerperium; R10.32 Left lower quadrant pain; H47.019 Ischemic optic neuropathy, unspecified eye; G36.0 Neuromyelitis optica [Devic]; E05.90 Thyrotoxicosis, unspecified without thyrotoxic crisis or storm; Z3A.34 34 weeks gestation of pregnancy
CPT/HCPCS: 36415; 59025; 76700; 80053; 81001; 85025; G0463

== ENCOUNTER → 2024-07-27 | Outpatient (CLI) | payer BC ==
[~2024-07-27] MED LIST changes: +MULTTAB20 PO; +ZOLO100T PO
== END ==
LOC: M RAD 13:12
PROVIDERS: ATTEND Advanced Practice Midwife
DX: Z34.90 Encounter for supervision of normal pregnancy, unspecified, unspecified trimester (principal)

== ENCOUNTER 2024-11-06 16:47 | Emergency (ER) | payer BC ==
[~2024-11-06] VITALS: Ht 167.6 cm; Wt 71.5 kg
[2024-11-06 18:11] LABS: BASO # 0.1 10^3/uL (0.0-0.2); EOS # 0.4 10^3/uL (0.0-0.5); EOS % 5.7 % (0.0-3.0); HEMATOCRIT 41.1 % (36.0-47.0); HEMOGLOBIN 13.2 g/dl (12.0-15.5); LYMPH # 1.9 10^3/uL (1.5-5.0); LYMPH % 25.5 % (24.0-44.0); MEAN CORPUSCULAR HEMOGLOBIN 28.8 pg (27.0-33.0); MEAN CORPUSCULAR HGB CONC 32.1 g/dl (32.0-36.5); MEAN CORPUSCULAR VOLUME 89.7 fl (80.0-96.0); MONO # 0.6 10^3/uL (0.0-0.8); MONO % 7.7 % (2.0-8.0); NEUTROPHILS # 4.3 10^3/uL (1.5-8.5); NEUTROPHILS % 59.8 % (36.0-66.0); PLATELET COUNT, AUTOMATED 293 10^3/uL (150-450); RED BLOOD COUNT 4.58 10^6/uL (4.00-5.40); WHITE BLOOD COUNT 7.3 10^3/uL (4.0-10.0)
[2024-11-06 18:28] LABS: BLOOD UREA NITROGEN 19 MG/DL (9-23); CALCIUM LEVEL 9.2 MG/DL (8.5-10.1); CARBON DIOXIDE LEVEL 27 MMOL/L (20-31); CHLORIDE LEVEL 108 MMOL/L (98-107); CREATININE FOR GFR 0.67 MG/DL (0.55-1.30); GLOMERULAR FILTRATION RATE > 60.0 (>60); GLUCOSE, FASTING 96 MG/DL (60-100); POTASSIUM SERUM 4.7 MMOL/L (3.5-5.1); SODIUM LEVEL 145 MMOL/L (136-145)
[2024-11-06] MEDS ORDERED: ISOVUE-370 76% 100ML VIAL As Ordered ONE (19:46)
[2024-11-06 20:38] LABS: KETONE, URINE AUTO RFX NEGATIVE (NEGATIVE); LEUKOCYTE ESTERASE UR AUTO RFX NEGATIVE (NEGATIVE); NITRITE, URINE AUTO RFX NEGATIVE (NEGATIVE); RBC, URINE AUTO RFX 3 /HPF (0-3); SQUAM EPITHELIAL CELL UR AURFX 0 /HPF (0-6); WBC, URINE AUTO RFX 0 /HPF (0-3)
[2024-11-06 21:24] VITALS: BP 116/72; TEMP 97.3; O2SAT 97
== END 2024-11-06 21:54 | disposition home or self-care (01) ==
LOC: M ED 16:47
DX: N93.9 Abnormal uterine and vaginal bleeding, unspecified (principal); R10.31 Right lower quadrant pain; Z79.52 Long term (current) use of systemic steroids; Z79.810 Long term (current) use of selective estrogen receptor modulators (SERMs); Z79.899 Other long term (current) drug therapy
CPT/HCPCS: 36415; 74177; 76830; 76856; 80048; 81001; 83605; 84702; 85025; 86850; 86900; 86901; 93976; 99284; Q9967

== ENCOUNTER 2025-04-12 07:47 | Outpatient (CLI) | payer BC ==
[~2025-04-12 07:47] MED LIST changes: -EQL50TAB2 PO; +PRED-1142 PO; -PRED1TABL PO; +VITA1TAB82 PO
[2025-04-12 09:22] LABS: BASO # 0.0 10^3/uL (0.0-0.2); BASO % 0.7 % (0.0-1.0); EOS # 0.2 10^3/uL (0.0-0.5); EOS % 4.0 % (0.0-3.0); LYMPH # 1.4 10^3/uL (1.5-5.0); LYMPH % 24.0 % (24.0-44.0); MONO # 0.5 10^3/uL (0.0-0.8); MONO % 9.0 % (2.0-8.0); NEUTROPHILS # 3.6 10^3/uL (1.5-8.5); NEUTROPHILS % 62.0 % (36.0-66.0); PLATELET COUNT, AUTOMATED 257 10^3/uL (150-450)
[2025-04-12 09:39] LABS: ALT/SGPT 15 U/L (7.0-40); AST/SGOT 15 U/L (<34); CALCIUM LEVEL 9.2 MG/DL (8.5-10.1); CARBON DIOXIDE LEVEL 28 MMOL/L (20-31); CHLORIDE LEVEL 108 MMOL/L (98-107); CREATININE FOR GFR 0.59 MG/DL (0.55-1.30); GLOMERULAR FILTRATION RATE > 90.0 (>60); POTASSIUM SERUM 4.4 MMOL/L (3.5-5.1); SODIUM LEVEL 145 MMOL/L (136-145)
[2025-04-12 09:41] LABS: FREE T4 0.95 NG/DL (0.89-1.76)
== END 2025-08-26 17:25 | disposition home or self-care (01) ==
LOC: M LAB 07:47
PROVIDERS: ATTEND Family Medicine
DX: Z00.00 Encounter for general adult medical examination without abnormal findings (principal); E05.90 Thyrotoxicosis, unspecified without thyrotoxic crisis or storm

== ENCOUNTER → 2025-05-25 | Outpatient (REF) ==
[2025-05-25 09:25] LABS: SOFIA COVID ANTIGEN NEGATIVE (NEGATIVE)
== END ==
LOC: M EMP 08:41
PROVIDERS: ATTEND Family Medicine
DX: Z01.89 Encounter for other specified special examinations (principal)

== ENCOUNTER → 2025-05-25 | Outpatient (REF) | LOC: M EMP 08:37 | PROVIDERS: ATTEND Family Medicine | DX: Z01.89 Encounter for other specified special examinations (principal) ==

== ENCOUNTER → 2025-08-16 | Outpatient (REF) ==
[2025-08-17 16:02] LABS: SOFIA COVID ANTIGEN NEGATIVE (NEGATIVE)
== END ==
LOC: M EMP 15:20
PROVIDERS: ATTEND Family Medicine
DX: Z01.89 Encounter for other specified special examinations (principal)

== ENCOUNTER → 2025-08-17 | Outpatient (REF) | LOC: M EMP 07:19 | PROVIDERS: ATTEND Family Medicine | DX: Z11.52 Encounter for screening for COVID-19 (principal) ==

== ENCOUNTER → 2025-08-26 | Outpatient (CLI) | payer BC ==
[~2025-08-26] VITALS: Ht 167.6 cm; Wt 70.5 kg
[2025-08-26] MEDS: methylPREDNISolone 1,000 MG, VIAL MATE ADAPTER 1 EACH in NS 100 ML IV ONE (16:23)
[2025-08-26 17:23] VITALS: BP 126/72; O2SAT 98
== END ==
LOC: M INFU 15:43
PROVIDERS: ATTEND Psychiatry & Neurology Neurology
DX: G36.0 Neuromyelitis optica [Devic] (principal)
CPT/HCPCS: 96365; J2919

== ENCOUNTER 2025-08-27 09:47 | Outpatient (CLI) | payer BC ==
[~2025-08-27] VITALS: Ht 167.6 cm; Wt 70.5 kg
[2025-08-27 09:55] VITALS: BP 132/77; O2SAT 99
[2025-08-27] MEDS: methylPREDNISolone 1,000 MG, VIAL MATE ADAPTER 1 EACH in NS 100 ML IV ONE (10:30)
== END 2025-08-27 11:35 | disposition home or self-care (01) ==
LOC: M OPCLI5PR 09:47 → M MS5PR 09:50 → M OPCLI5PR 11:35
PROVIDERS: ATTEND Psychiatry & Neurology Neurology
DX: G36.0 Neuromyelitis optica [Devic] (principal)
CPT/HCPCS: 96365; J2919

== ENCOUNTER 2025-08-28 10:30 | Outpatient (CLI) | payer BC ==
[~2025-08-28] VITALS: Ht 167.6 cm; Wt 70.5 kg
[2025-08-28 10:44] VITALS: BP 147/83; O2SAT 98
[2025-08-28] MEDS: methylPREDNISolone 1,000 MG, VIAL MATE ADAPTER 1 EACH in NS 100 ML IV ONE (11:15)
[2025-08-28 12:30] VITALS: BP 132/91; O2SAT 96
== END 2025-08-28 12:33 | disposition home or self-care (01) ==
LOC: M OPCLI4PR 10:30 → M MS4PR 10:34 → M OPCLI4PR 12:33
PROVIDERS: ATTEND Psychiatry & Neurology Neurology
DX: G36.0 Neuromyelitis optica [Devic] (principal)
CPT/HCPCS: 96365; J2919